=== PATIENT | male | born 1965 | race Caucasian/White ===

== ENCOUNTER 2016-08-29 14:24 | Inpatient (IN) | payer OTHER ==
[2016-08-29 18:27] VITALS: BMI 27.6
--- NOTE | 2016-08-29 18:47 | HP ---
CIWA Score - CIWA Score Nausea/Vomitin-Mild Nausea/No Vomiting (RECEIVED LIBRIUM AT [facility] TREATED WITH SEIZURE) Muscle Tremors: 4-Moderate,w/Arms Extend Anxiety: 3 Agitation: 4-Moderately Restless Paroxysmal Sweats: 1-Minimal Palms Moist Orientation: 1-Uncertain about Date Tacttile Disturbances: 0-None Auditory Disturbances: 0-None Visual Disturbances: 0-None Headache: 2-Mild CIWA-Ar Total Score: 16 Admission ROS S - HPI Chief Complaint: WITHDRAWAL SX Allergies/Adverse Reactions: Allergies Allergy/AdvReac Type Severity Reaction Status Date / Time Fish Containing Products Allergy Severe Hives Verified 08/29/16 18:48 No Known Drug Allergies Allergy Verified 08/29/16 18:48 History of Present Illness: 51 YEARS OLD MALE WITH LONG HISTORY OF ALCOHOL NICOTINE DEPENDENCE, HAS SEIZURE , LAST EPISODE 08/28/16 TREATED AT [facility], HAS ANXIETY IS ADMITTED TO DETOX Exam Limitations: No Limitations - Ebola screening Have you traveled outside of the country in the last 21 days: No Have you had contact with anyone from an Ebola affected area: No Have you been sick,other than usual withdrawal symptoms: No Do you have a fever: No - Review of Systems Constitutional: Chills, Changes in sleep, Weight Stable EENT: reports: No Symptoms Reported Respiratory: reports: No Symptoms reported Cardiac: reports: No Symptoms Reported GI: reports: Nausea, Poor Fluid Intake, Abdominal cramping : reports: No Symptoms Reported Musculoskeletal: reports: No Symptoms Reported Integumentary: reports: No Symptoms Reported Neuro: reports: Seizure (HEAD TRAUMA AT AGO 19,), Tremors Endocrine: reports: No Symptoms Reported Hematology: reports: No Symptoms Reported Psychiatric: reports: Judgement Intact, Anxious Other Systems: Reviewed and Negative Patient History - Patient Medical History Hx Anemia: No Hx Asthma: No Hx Chronic Obstructive Pulmonary Disease (COPD): No Hx Cancer: No Hx Cardiac Disorders: No Hx Congestive Heart Failure: No Hx Hypertension: No Hx Hypercholesterolemia: No Hx Pacemaker: No HX Cerebrovascular Accident: No Hx Seizures: Yes ( HEAD TRAUMAlast episode was in 08/28/16) Hx Dementia: No Hx Diabetes: No Hx Gastrointestinal Disorders: No Hx Liver Disease: No Hx Genitourinary Disorders: No Hx Sexually Transmitted Disorders: No Hx Renal Disease (ESRD): No Hx Thyroid Disease: No Hx Human Immunodeficiency Virus (HIV): No (negative) Hx Hepatitis C: No Hx Depression: Yes Hx Suicide Attempt: No Hx Bipolar Disorder: No Hx Schizophrenia: No - Patient Surgical History Past Surgical History: Yes Hx Neurologic Surgery: Yes (metal plate placed 2009 no recollection how he wound up in hospital ) Hx Cataract Extraction: No Hx Cardiac Surgery: No Hx Lung Surgery: No Hx Breast Surgery: No Hx Breast Biopsy: No Hx Abdominal Surgery: No Hx Appendectomy: No Hx Cholecystectomy: No Hx Genitourinary Surgery: No Hx Orthopedic Surgery: No Anesthesia Reaction: No - PPD History Previous Implant?: Yes Documented Results: Negative w/proof Implanted On Prior [facility] Admission?: Yes Date: 03/17/16 Results: 0 mm PPD to be Administered?: No - Smoking Cessation Smoking history: Current every day smoker Have you smoked in the past 12 months: Yes Aproximately how many cigarettes per day: 10 Cigars Per Day: 0 Hx Chewing Tobacco Use: No Initiated information on smoking cessation: Yes 'Breaking Loose' booklet given: 08/29/16 - Substance & Tx. History Hx Alcohol Use: Yes Hx Substance Use: No Substance Use Type: Alcohol Hx Substance Use Treatment: Yes - Substances Abused Alcohol Route: Oral Frequency: Daily Amount used: 24 OZ X6 BEER Age of first use: 15 Date of Last Use: 08/29/16 Admission Physical Exam BHS - Vital Signs Vital Signs: Vital Signs - 24 hr 08/29/16 18:22 Temperature 99.0 F Pulse Rate 75 Respiratory 18 Rate Blood Pressure 125/76 - Physical General Appearance: Yes: Appropriately Dressed, Mild Distress, Moderate Distress , Tremorous, Irritable, Sweating, Anxious HEENTM: Yes: Hearing grossly Normal, Normal ENT Inspection, Normocephalic, Normal Voice Respiratory: Yes: Chest Non-Tender, Lungs Clear, Normal Breath Sounds, No Respiratory Distress, No Accessory Muscle Use Neck: Yes: Supple, Trachea in good position Breast: Yes: Breasts Symetrical Cardiology: Yes: Regular Rhythm, Regular Rate, S1, S2 Abdominal: Yes: Non Tender, Soft Genitourinary: Yes: Within Normal Limits Back: Yes: Normal Inspection Musculoskeletal: Yes: Gait Steady (CANE), Muscle Pain Extremities: Yes: Non-Tender, Tremors Neurological: Yes: Alert, Normal Response, Depressed Affect Integumentary: Yes: Warm Lymphatic: Yes: Within Normal Limits - Diagnostic (1) Nicotine dependence Current Visit: Yes Status: Acute Qualifiers: Nicotine product type: cigarettes Substance use status: in withdrawal Qualified Code(s): F17.213 - Nicotine dependence, cigarettes, with withdrawal (2) Seizure disorder Current Visit: Yes Status: Acute Comment: DEPAKOTE DILANTIN (3) Alcohol dependence with uncomplicated withdrawal Current Visit: Yes Status: Acute (4) Use of cane as ambulatory aid Current Visit: Yes Status: Acute Comment: SEIZURE 08/28/16 SEIZURE 08/21/16 (5) Anxiety Current Visit: Yes Status: Suspected (6) Hyperpigmentation Current Visit: Yes Status: Chronic Comment: HANDS WORK RELATED Cleared for Admission S - Detox or Rehab [facility] Level of Care: Medically Managed Detox Regimen/Protocol: Valium S Breath Alcohol Content Breath Alcohol Content: 0 Urine Drug Screen - Results Drug Screen Negative: No Urine Drug Screen Results: THC-Marijuana, BAR-Barbiturates, BZO-Benzodiazepines
[2016-08-29] MEDS ORDERED: MAGNESIUM CITRATE 300 ML BOTTLE PO PRN (18:52)
[2016-08-29] MEDS ORDERED: P-EPHED 60MG/TRIPROLIDI 2.5MG TABLET PO PRN (18:52)
[2016-08-29] MEDS ORDERED: LOPERAMIDE HCL 2 MG CAPSULE PO PRN (18:52)
[2016-08-29] MEDS ORDERED: NICOTINE POLACRILEX 2 MG GUM BUC PRN (18:52)
[2016-08-29] MEDS ORDERED: diazePAM 5 MG TABLET PO ONE (18:52)
[2016-08-29] MEDS ORDERED: IBUPROFEN 400 MG TABLET (FP) PO PRN (18:52)
[2016-08-29] MEDS ORDERED: MENTHOL/PHENOL 1 EACH UD MM PRN (18:52)
[2016-08-29] MEDS ORDERED: MAGNESIUM HYDROX 2400MG/30ML ORAL SUSPENSION 30 ML CUP PO PRN (18:52)
[2016-08-29] MEDS ORDERED: hydrOXYzine PAMOATE 50 MG CAPSULE (FP) PO PRN (18:52)
[2016-08-29] MEDS ORDERED: MAG HYDROX/AL HYDROX/SIMETH 30 ML UNIT-DOSE CUP PO PRN (18:52)
[2016-08-29] MEDS ORDERED: guaiFENesin/D-METHORPHAN HB 10 ML UNIT-DOSE CUPS PO PRN (18:52)
[2016-08-29] MEDS ORDERED: ACETAMINOPHEN 325 MG TABLET (FP) PO PRN (18:52)
[2016-08-29 22:33] LABS: URINE APPEARANCE CLEAR; URINE BILIRUBIN NEGATIVE (NEGATIVE); URINE BLOOD NEGATIVE (NEGATIVE); URINE COLOR LTYELLOW; URINE GLUCOSE (UA) NEGATIVE (NEGATIVE); URINE KETONE 1+ (NEGATIVE); URINE LEUK ESTERASE NEGATIVE (NEGATIVE); URINE NITRITE NEGATIVE (NEGATIVE); URINE PROTEIN NEGATIVE (NEGATIVE); URINE UROBILINOGEN NEGATIVE E.U./dl (0.2-1.0)
[2016-08-29] MEDS: PHENYTOIN NA EXTENDED 100 MG CAPSULE (FP) PO SCH (22:56)
[2016-08-29] MEDS: THIAMINE HCL 100 MG TABLET (FP) PO SCH (22:56)
[2016-08-29] MEDS: diazePAM 5 MG TABLET PO SCH (22:57)
[2016-08-29] MEDS: DIVALPROEX SODIUM 500 MG TABLET E.C. PO SCH (22:57)
[2016-08-30] MEDS: diazePAM 5 MG TABLET PO SCH ×3 (05:39→22:57)
[2016-08-30] MEDS: NICOTINE 14 MG/24 HOURS TOPICAL PATCH TD SCH (10:58)
[2016-08-30] MEDS: PRENATAL VITAMINS W/ FOLIC ACID TABLET (FP) PO SCH (10:58)
[2016-08-30] MEDS: DIVALPROEX SODIUM 500 MG TABLET E.C. PO SCH ×2 (10:58→22:57)
--- NOTE | 2016-08-30 11:28 | PN ---
[facility] CIWA - CIWA Score Nausea/Vomitin-No Nausea/No Vomiting Muscle Tremors: 4-Moderate,w/Arms Extend Anxiety: 4-Mod. Anxious/Guarded Agitation: 4-Moderately Restless Paroxysmal Sweats: 1-Minimal Palms Moist Orientation: 0-Oriented Tacttile Disturbances: 3-Moderate Itch/Numb/Burn Auditory Disturbances: 0-None Visual Disturbances: 0-None Headache: 0-None Present CIWA-Ar Total Score: 16 BHS Progress Note (SOAP) Subjective: ANXIETY,TREMORS,SWEATS,INTERMITTENT SLEEP Objective: 08/30/16 11:27 Vital Signs Temperature 97.6 F 08/30/16 10:31 Pulse Rate 76 08/30/16 10:31 Respiratory Rate 20 08/30/16 10:31 Blood Pressure 133/82 08/30/16 10:31 O2 Sat by Pulse Oximetry (%) Laboratory Last Values Urine Color Ltyellow 08/29/16 22:00 Urine Appearance Clear 08/29/16 22:00 Urine pH 6.0 (5.0-8.0) 08/29/16 22:00 Ur Specific [place] 1.015 (1.001-1.035) 08/29/16 22:00 Urine Protein Negative (NEGATIVE) 08/29/16 22:00 Urine Glucose (UA) Negative (NEGATIVE) 08/29/16 22:00 Urine Ketones 1+ (NEGATIVE) H 08/29/16 22:00 Urine Blood Negative (NEGATIVE) 08/29/16 22:00 Urine Nitrite Negative (NEGATIVE) 08/29/16 22:00 Urine Bilirubin Negative (NEGATIVE) 08/29/16 22:00 Urine Urobilinogen Negative E.U./dl (0.2-1.0) 08/29/16 22:00 Ur Leukocyte Esterase Negative (NEGATIVE) 08/29/16 22:00 Assessment: 08/30/16 11:27 MG ROMEO Plan: CONTINUE DETOX
[2016-08-30 11:39] LABS: ALBUMIN 3.1 g/dl (3.4-5.0); ANION GAP 10 (8-16); CALCIUM 8.6 mg/dL (8.5-10.1); CO2 28 mmol/L (21-32); GLUCOSE,RANDOM 87 mg/dL (74-106); SGPT/ALT 68 U/L (12-78)
[2016-08-30 11:43] LABS: ALK PHOS 172 U/L (45-117); BILIRUBIN,TOTAL 0.6 mg/dL (0.2-1.0); COCKROFT - GAULT 161.59; CREATININE 0.6 mg/dL (0.7-1.3); MCH 30.5 pg (25.7-33.7); MCHC 32.7 g/dl (32.0-35.9); MEAN CELL VOLUME 93.3 fl (80-96); MEAN PLT VOLUME 9.6 fl (7.5-11.1); PLATELET COUNT 278 K/MM3 (134-434); RDW 14.9 % (11.9-15.9); SGOT/AST 53 U/L (15-37); TOT PROT 6.9 g/dl (6.4-8.2); WHITE BLOOD COUNT 7.5 K/mm3 (4.0-10.0)
[2016-08-30 11:53] LABS: VALPROIC ACID DEPAKOTE DEPAKAN 72.965 ug/ml (50-100)
--- NOTE | 2016-08-30 12:21 | CONSULT ---
[facility] Psychiatric Consult - Data Date of interview: 08/30/16 Admission source: [facility] Identifying data: Mr Parekh is a 51 years old single male, father of 3 children, unemployed on public assistancr, homeless seeking detox treatment for alcohol Substance Abuse History: - Smoking Cessation. Smoking history: Current every day smoker. Have you smoked in the past 12 months: Yes. Aproximately how many cigarettes per day: 10. Cigars Per Day: 0. Hx Chewing Tobacco Use: No. Initiated information on smoking cessation: Yes. 'Breaking Loose' booklet given : 08/29/16. - Substance & Tx. History. Hx Alcohol Use: Yes. Hx Substance Use : No. Substance Use Type: Alcohol. Hx Substance Use Treatment: Yes. - Substances Abused. Alcohol. Route: Oral. Frequency: Daily. Amount used: 24 OZ X6 BEER. Age of first use: 15. Date of Last Use: 08/29/16 Medical History: Significant for history of Seizure Disorder and S/P Neurosurgery in [address] Smokes 10 cigarettes daily Psychiatric History: Denies history of previous psychiatric treatment Physical/Sexual Abuse/Trauma History: Denies history of physical, sexual abuse as well as DV relationship. Additional Comment: No criminal history Additional Comment: No criminal history Mental Status Exam - Mental Status Exam Alert and Oriented to: Time, Place, Person Cognitive Function: Fair Patient Appearance: Well Groomed Mood: Hopeful, Euthymic Affect: Appropriate Patient Behavior: Cooperative Speech Pattern: Clear Voice Loudness: Normal Thought Process: Intact Thought Disorder: Not Present Hallucinations: Denies Suicidal Ideation: Denies Insight/Judgement: Poor Sleep: Fair Appetite: Good Muscle strength/Tone: Normal Gait/Station: Normal Psychiatric Findings - Problem List ([place] 1, 2,3) (1) Alcohol dependence with uncomplicated withdrawal Current Visit: Yes Status: Acute (2) Nicotine dependence Current Visit: Yes Status: Acute Qualifiers: Nicotine product type: cigarettes Substance use status: in withdrawal Qualified Code(s): F17.213 - Nicotine dependence, cigarettes, with withdrawal (3) Seizure disorder Current Visit: Yes Status: Acute Comment: TANNA RAMIREZ - Initial Treatment Plan Initial Treatment Plan: Continue inpatient detoxifaication
--- NOTE | 2016-08-30 13:58 | EKG ---
Test Reason : Blood Pressure : / mmHG Vent. Rate : 073 BPM Atrial Rate : 073 BPM P-R Int : 140 ms QRS Dur : 084 ms QT Int : 366 ms P-R-T Axes : 044 011 -03 degrees QTc Int : 403 ms NORMAL SINUS RHYTHM NORMAL ECG NO PREVIOUS ECGS AVAILABLE Confirmed by MICH US, DOLORES ([id number]) on 08/30/2016 1:57:40 PM Referred By: Confirmed By:DOLORES EPPS MD
[2016-08-30] MEDS: THIAMINE HCL 100 MG TABLET (FP) PO SCH (22:57)
[2016-08-30] MEDS: PHENYTOIN NA EXTENDED 100 MG CAPSULE (FP) PO SCH (22:57)
[2016-08-31] MEDS: DIVALPROEX SODIUM 500 MG TABLET E.C. PO SCH ×2 (10:41→22:48)
[2016-08-31] MEDS: PRENATAL VITAMINS W/ FOLIC ACID TABLET (FP) PO SCH (10:41)
[2016-08-31] MEDS: diazePAM 5 MG TABLET PO SCH ×2 (10:41→22:47)
[2016-08-31] MEDS: NICOTINE 14 MG/24 HOURS TOPICAL PATCH TD SCH (10:42)
--- NOTE | 2016-08-31 12:20 | PN ---
[facility] CIWA - CIWA Score Nausea/Vomitin-No Nausea/No Vomiting Muscle Tremors: 4-Moderate,w/Arms Extend Anxiety: 4-Mod. Anxious/Guarded Agitation: 4-Moderately Restless Paroxysmal Sweats: 1-Minimal Palms Moist Orientation: 0-Oriented Tacttile Disturbances: 3-Moderate Itch/Numb/Burn Auditory Disturbances: 0-None Visual Disturbances: 0-None Headache: 0-None Present CIWA-Ar Total Score: 16 BHS Progress Note (SOAP) Subjective: ANXIETY,SWEATS, SLIGHT TREMORS. Objective: 08/31/16 12:19 Vital Signs Temperature 98.6 F 08/31/16 10:25 Pulse Rate 86 08/31/16 10:25 Respiratory Rate 18 08/31/16 10:25 Blood Pressure 119/71 08/31/16 10:25 O2 Sat by Pulse Oximetry (%) Laboratory Last Values WBC 7.5 K/mm3 (4.0-10.0) 08/30/16 07:50 RBC 3.90 M/mm3 (4.00-5.60) L 08/30/16 07:50 Hgb 11.9 GM/dL (11.7-16.9) 08/30/16 07:50 Hct 36.4 % (35.4-49) 08/30/16 07:50 MCV 93.3 fl (80-96) 08/30/16 07:50 MCHC 32.7 g/dl (32.0-35.9) 08/30/16 07:50 RDW 14.9 % (11.9-15.9) D 08/30/16 07:50 Plt Count 278 K/MM3 (134-434) D 08/30/16 07:50 MPV 9.6 fl (7.5-11.1) D 08/30/16 07:50 Sodium 139 mmol/L (136-145) 08/30/16 07:50 Potassium 3.9 mmol/L (3.5-5.1) 08/30/16 07:50 Chloride 101 mmol/L (98-107) 08/30/16 07:50 Carbon Dioxide 28 mmol/L (21-32) 08/30/16 07:50 Anion Gap 10 (8-16) 08/30/16 07:50 BUN 12 mg/dL (7-18) D 08/30/16 07:50 Creatinine 0.6 mg/dL (0.7-1.3) L D 08/30/16 07:50 Creat Clearance w eGFR > 60 (>60) 08/30/16 07:50 Random Glucose 87 mg/dL (74-106) D 08/30/16 07:50 Calcium 8.6 mg/dL (8.5-10.1) 08/30/16 07:50 Total Bilirubin 0.6 mg/dL (0.2-1.0) 08/30/16 07:50 AST 53 U/L (15-37) H D 08/30/16 07:50 ALT 68 U/L (12-78) D 08/30/16 07:50 Alkaline Phosphatase 172 U/L (45-117) H 08/30/16 07:50 Total Protein 6.9 g/dl (6.4-8.2) 08/30/16 07:50 Albumin 3.1 g/dl (3.4-5.0) L D 08/30/16 07:50 Urine Color Ltyellow 08/29/16 22:00 Urine Appearance Clear 08/29/16 22:00 Urine pH 6.0 (5.0-8.0) 08/29/16 22:00 Ur Specific [place] 1.015 (1.001-1.035) 08/29/16 22:00 Urine Protein Negative (NEGATIVE) 08/29/16 22:00 Urine Glucose (UA) Negative (NEGATIVE) 08/29/16 22:00 Urine Ketones 1+ (NEGATIVE) H 08/29/16 22:00 Urine Blood Negative (NEGATIVE) 08/29/16 22:00 Urine Nitrite Negative (NEGATIVE) 08/29/16 22:00 Urine Bilirubin Negative (NEGATIVE) 08/29/16 22:00 Urine Urobilinogen Negative E.U./dl (0.2-1.0) 08/29/16 22:00 Ur Leukocyte Esterase Negative (NEGATIVE) 08/29/16 22:00 Phenytoin 9.2 ug/ml (10.0-20.0) L 08/30/16 07:50 Valproic Acid 72.965 ug/ml (50-100) 08/30/16 07:50 RPR Titer Nonreactive (NONREACTIVE) 08/30/16 07:50 Assessment: 08/31/16 12:19 WITHDRAWAL SX Plan: CONTINUE DETOX
[2016-08-31] MEDS: THIAMINE HCL 100 MG TABLET (FP) PO SCH (22:47)
[2016-08-31] MEDS: PHENYTOIN NA EXTENDED 100 MG CAPSULE (FP) PO SCH (22:48)
[2016-08-31] MEDS: diphenhydrAMINE HCL 50 MG CAPSULE PO PRN (22:49)
[2016-09-01] MEDS: diazePAM 5 MG TABLET PO PRN ×2 (05:27→17:44)
[2016-09-01] MEDS: diazePAM 5 MG TABLET PO SCH ×2 (10:33→22:38)
[2016-09-01] MEDS: DIVALPROEX SODIUM 500 MG TABLET E.C. PO SCH ×2 (10:33→22:38)
[2016-09-01] MEDS: PRENATAL VITAMINS W/ FOLIC ACID TABLET (FP) PO SCH (10:33)
[2016-09-01] MEDS: NICOTINE 14 MG/24 HOURS TOPICAL PATCH TD SCH (10:34)
--- NOTE | 2016-09-01 11:01 | PN ---
BHS Progress Note (SOAP) Subjective: ANXIETY SWEATS, TREMORS, IRRITABILITY. Objective: 09/01/16 11:00 Vital Signs Temperature 95.2 F L 09/01/16 09:28 Pulse Rate 77 09/01/16 09:28 Respiratory Rate 18 09/01/16 09:28 Blood Pressure 119/82 09/01/16 09:28 O2 Sat by Pulse Oximetry (%) Laboratory Last Values WBC 7.5 K/mm3 (4.0-10.0) 08/30/16 07:50 RBC 3.90 M/mm3 (4.00-5.60) L 08/30/16 07:50 Hgb 11.9 GM/dL (11.7-16.9) 08/30/16 07:50 Hct 36.4 % (35.4-49) 08/30/16 07:50 MCV 93.3 fl (80-96) 08/30/16 07:50 MCHC 32.7 g/dl (32.0-35.9) 08/30/16 07:50 RDW 14.9 % (11.9-15.9) D 08/30/16 07:50 Plt Count 278 K/MM3 (134-434) D 08/30/16 07:50 MPV 9.6 fl (7.5-11.1) D 08/30/16 07:50 Sodium 139 mmol/L (136-145) 08/30/16 07:50 Potassium 3.9 mmol/L (3.5-5.1) 08/30/16 07:50 Chloride 101 mmol/L (98-107) 08/30/16 07:50 Carbon Dioxide 28 mmol/L (21-32) 08/30/16 07:50 Anion Gap 10 (8-16) 08/30/16 07:50 BUN 12 mg/dL (7-18) D 08/30/16 07:50 Creatinine 0.6 mg/dL (0.7-1.3) L D 08/30/16 07:50 Creat Clearance w eGFR > 60 (>60) 08/30/16 07:50 Random Glucose 87 mg/dL (74-106) D 08/30/16 07:50 Calcium 8.6 mg/dL (8.5-10.1) 08/30/16 07:50 Total Bilirubin 0.6 mg/dL (0.2-1.0) 08/30/16 07:50 AST 53 U/L (15-37) H D 08/30/16 07:50 ALT 68 U/L (12-78) D 08/30/16 07:50 Alkaline Phosphatase 172 U/L (45-117) H 08/30/16 07:50 Total Protein 6.9 g/dl (6.4-8.2) 08/30/16 07:50 Albumin 3.1 g/dl (3.4-5.0) L D 08/30/16 07:50 Urine Color Ltyellow 08/29/16 22:00 Urine Appearance Clear 08/29/16 22:00 Urine pH 6.0 (5.0-8.0) 08/29/16 22:00 Ur Specific [place] 1.015 (1.001-1.035) 08/29/16 22:00 Urine Protein Negative (NEGATIVE) 08/29/16 22:00 Urine Glucose (UA) Negative (NEGATIVE) 08/29/16 22:00 Urine Ketones 1+ (NEGATIVE) H 08/29/16 22:00 Urine Blood Negative (NEGATIVE) 08/29/16 22:00 Urine Nitrite Negative (NEGATIVE) 08/29/16 22:00 Urine Bilirubin Negative (NEGATIVE) 08/29/16 22:00 Urine Urobilinogen Negative E.U./dl (0.2-1.0) 08/29/16 22:00 Ur Leukocyte Esterase Negative (NEGATIVE) 08/29/16 22:00 Phenytoin 9.2 ug/ml (10.0-20.0) L 08/30/16 07:50 Valproic Acid 72.965 ug/ml (50-100) 08/30/16 07:50 RPR Titer Nonreactive (NONREACTIVE) 08/30/16 07:50 Assessment: 09/01/16 11:00 WITHDRAWAL SX Plan: CONTINUE DETOX
[2016-09-01] MEDS: PHENYTOIN NA EXTENDED 100 MG CAPSULE (FP) PO SCH (22:38)
[2016-09-01] MEDS: THIAMINE HCL 100 MG TABLET (FP) PO SCH (22:39)
[2016-09-01] MEDS: diphenhydrAMINE HCL 50 MG CAPSULE PO PRN (22:41)
[2016-09-02] MEDS: PRENATAL VITAMINS W/ FOLIC ACID TABLET (FP) PO SCH (09:24)
[2016-09-02] MEDS: DIVALPROEX SODIUM 500 MG TABLET E.C. PO SCH (09:24)
[2016-09-02] MEDS: NICOTINE 14 MG/24 HOURS TOPICAL PATCH TD SCH (09:25)
[2016-09-02] MEDS ORDERED: diazePAM 5 MG TABLET PO SCH (10:00)
[2016-09-02 10:45] VITALS: BP 107/74; PULSE 90; TEMP 97
--- NOTE | 2016-09-02 11:03 | DS ---
[facility] Detox Discharge Summary Admission Date: 08/29/16 Discharge Date: 09/02/16 - History Present History: Alcohol Dependence Pertinent Past History: Seizure disorder Traumatic Brain injury - Physical Exam Results Vital Signs: Vital Signs Temperature 97.0 F L 09/02/16 10:45 Pulse Rate 90 09/02/16 10:45 Respiratory Rate 20 09/02/16 10:45 Blood Pressure 107/74 09/02/16 10:45 O2 Sat by Pulse Oximetry (%) Pertinent Admission Physical Exam Findings: Withdrawal sx. Laboratory Tests 08/29/16 08/30/16 08/30/16 22:00 07:50 07:50 WBC 7.5 RBC 3.90 L Hgb 11.9 Hct 36.4 MCV 93.3 MCHC 32.7 RDW 14.9 D Plt Count 278 D MPV 9.6 D Sodium 139 Potassium 3.9 Chloride 101 Carbon Dioxide 28 Anion Gap 10 BUN 12 D Creatinine 0.6 L D Creat Clearance w eGFR > 60 Random Glucose 87 D Calcium 8.6 Total Bilirubin 0.6 AST 53 H D ALT 68 D Alkaline Phosphatase 172 H Total Protein 6.9 Albumin 3.1 L D Urine Color Ltyellow Urine Appearance Clear Urine pH 6.0 Ur Specific [place] 1.015 Urine Protein Negative Urine Glucose (UA) Negative Urine Ketones 1+ H Urine Blood Negative Urine Nitrite Negative Urine Bilirubin Negative Urine Urobilinogen Negative Ur Leukocyte Esterase Negative Phenytoin Valproic Acid RPR Titer 08/30/16 08/30/16 07:50 07:50 WBC RBC Hgb Hct MCV MCHC RDW Plt Count MPV Sodium Potassium Chloride Carbon Dioxide Anion Gap BUN Creatinine Creat Clearance w eGFR Random Glucose Calcium Total Bilirubin AST ALT Alkaline Phosphatase Total Protein Albumin Urine Color Urine Appearance Urine pH Ur Specific [place] Urine Protein Urine Glucose (UA) Urine Ketones Urine Blood Urine Nitrite Urine Bilirubin Urine Urobilinogen Ur Leukocyte Esterase Phenytoin 9.2 L Valproic Acid 72.965 RPR Titer Nonreactive labs noted - Treatment Hospital Course: Detox Protocol Followed, Detoxed Safely, Responded well, Discharged Condition Good, Rehab Referral Accepted Patient has Accepted a Rehab Referral to: 12 step meeting - Medication Discharge Medications: Ambulatory Orders Divalproex Sodium [Depakote] 1,000 mg PO BID 03/15/16 Acetaminophen [Tylenol] 32,650 mg PO Q6H PRN 05/11/16 Albuterol Sulfate Inhaler - [Ventolin Hfa Inhaler -] 2 inh PO Q4H PRN 05/11/16 Folic Acid - 1 mg PO DAILY 05/11/16 Naproxen [Naprosyn -] 500 mg PO BID PRN 05/11/16 Thiamine HCl [B-1] 100 mg PO DAILY 05/11/16 - Diagnosis (1) Alcohol dependence with uncomplicated withdrawal Current Visit: Yes Status: Acute (2) Nicotine dependence Current Visit: Yes Status: Acute Qualifiers: Nicotine product type: cigarettes Substance use status: in withdrawal Qualified Code(s): F17.213 - Nicotine dependence, cigarettes, with withdrawal (3) Seizure disorder Current Visit: Yes Status: Acute - AMA Did Patient Leave Against Medical Advice: No
== END 2016-09-02 10:11 | disposition home or self-care (01) | DRG 775 ==
LOC: YASAS 14:24 → Y3N 18:51
PROVIDERS: ADMIT Internal Medicine; ATTEND Internal Medicine
PROC: HZ2ZZZZ Detoxification Services for Substance Abuse Treatment (ICD-10-PCS; principal; 2016-09-02)
DX: F10.230 Alcohol dependence with withdrawal, uncomplicated (principal); F17.210 Nicotine dependence, cigarettes, uncomplicated; G40.909 Epilepsy, unspecified, not intractable, without status epilepticus; Z59.0 Homelessness
CPT/HCPCS: 36415; 80053; 80164; 80185; 81003; 85027; 86593; 93005; 93010

== ENCOUNTER 2016-10-14 08:41 | Inpatient (IN) | payer OTHER ==
[2016-10-14 10:29] VITALS: BMI 27.4
--- NOTE | 2016-10-14 11:49 | HP ---
CIWA Score - CIWA Score Nausea/Vomitin-Int. Nausea w/Dry Heave Muscle Tremors: 3 Anxiety: 4-Mod. Anxious/Guarded Agitation: 4-Moderately Restless Paroxysmal Sweats: 1-Minimal Palms Moist Orientation: 0-Oriented Tacttile Disturbances: 3-Moderate Itch/Numb/Burn Auditory Disturbances: 0-None Visual Disturbances: 0-None Headache: 3-Moderate CIWA-Ar Total Score: 22 Admission ROS S - HPI Chief Complaint: DETOX TX FOR ALCOHOL DEPENDENCE. Allergies/Adverse Reactions: Allergies Allergy/AdvReac Type Severity Reaction Status Date / Time Fish Containing Products Allergy Severe Hives Verified 10/14/16 10:49 No Known Drug Allergies Allergy Verified 10/14/16 10:49 History of Present Illness: 51 Y/O H/M WITH A HX OF ALCOHOL AND MARIJUANA DEPENDENCE SEEKING DETOX TX Exam Limitations: No Limitations - Ebola screening Have you traveled outside of the country in the last 21 days: No Have you had contact with anyone from an Ebola affected area: No Have you been sick,other than usual withdrawal symptoms: No - Review of Systems Constitutional: Chills, Night Sweats, Changes in sleep EENT: reports: Blurred Vision, Tearing, Nose Congestion Respiratory: reports: No Symptoms reported Cardiac: reports: Lightheadedness GI: reports: Nausea, Indigestion : reports: Frequency Musculoskeletal: reports: Joint Pain, Muscle Pain Integumentary: reports: No Symptoms Reported Neuro: reports: Headache, Seizure (LAST EPISODE. THREE WEEKS AGO), Tremors, Unsteady Gait Endocrine: reports: No Symptoms Reported Hematology: reports: No Symptoms Reported Psychiatric: reports: Orientated x3, Anxious Other Systems: Reviewed and Negative Patient History - Patient Medical History Hx Anemia: No Hx Asthma: No Hx Chronic Obstructive Pulmonary Disease (COPD): No Hx Cancer: No Hx Cardiac Disorders: No Hx Congestive Heart Failure: No Hx Hypertension: No Hx Hypercholesterolemia: No Hx Pacemaker: No HX Cerebrovascular Accident: No Hx Seizures: Yes (on meds. Last seizure was 3 weeks ago.) Hx Dementia: No Hx Diabetes: No Hx Gastrointestinal Disorders: No Hx Liver Disease: No Hx Genitourinary Disorders: No Hx Sexually Transmitted Disorders: No Hx Renal Disease (ESRD): No Hx Thyroid Disease: No Hx Human Immunodeficiency Virus (HIV): No (negative) Hx Hepatitis C: No Hx Depression: Yes Hx Suicide Attempt: No (DENIES) Hx Bipolar Disorder: No Hx Schizophrenia: No Other Medical History: HX CHRONIC INSOMNIA - Patient Surgical History Past Surgical History: Yes Hx Neurologic Surgery: Yes (metal plate placed 2008 no recollection how he wound up in hospital ) Hx Cataract Extraction: No Hx Cardiac Surgery: No Hx Lung Surgery: No Hx Breast Surgery: No Hx Breast Biopsy: No Hx Abdominal Surgery: No Hx Appendectomy: No Hx Cholecystectomy: No Hx Genitourinary Surgery: No Hx Orthopedic Surgery: No Anesthesia Reaction: No - PPD History Previous Implant?: Yes Documented Results: Negative w/proof Implanted On Prior [facility] Admission?: Yes Date: 03/17/16 Results: 0 mm PPD to be Administered?: No - Reproductive History Patient is a Female of Child Bearing Age (11 -55 yrs old): No (MALE) - Smoking Cessation Smoking history: Current every day smoker Have you smoked in the past 12 months: Yes Aproximately how many cigarettes per day: 4 Cigars Per Day: 0 Hx Chewing Tobacco Use: No Initiated information on smoking cessation: Yes 'Breaking Loose' booklet given: 10/14/16 - Substance & Tx. History Hx Alcohol Use: Yes (BEER) Hx Substance Use: Yes (MARIJUANA) Substance Use Type: Alcohol, Marijuana - Substances Abused Alcohol Route: Oral Frequency: Daily Amount used: 6 24 oz beers Age of first use: 15 Date of Last Use: 10/14/16 Marijuana/Hashish Route: Smoking Frequency: Daily Amount used: 3-4 blunts Age of first use: 19 Date of Last Use: 10/13/16 Family Disease History - Family Disease History Family History: Unable to Obtain (PT DOES NOT KNOW) Admission Physical Exam S - Vital Signs Vital Signs: Vital Signs - 24 hr 10/14/16 10:25 Temperature 97 F L Pulse Rate 98 H Respiratory 20 Rate Blood Pressure 130/77 - Physical General Appearance: Yes: Moderate Distress, Alcohol on Breath, Irritable, Anxious, Other (SCAR ON SCALP AND LEFT EYEBROW DUE TO SEIZURE FALL INJURY IN 2008) HEENTM: Yes: EOMI, Normocephalic, DEX, Pharynx Normal, Nasal Congestion, Rhinorrhea Respiratory: Yes: Chest Non-Tender, Lungs Clear, Normal Breath Sounds, No Respiratory Distress Neck: Yes: Supple, Trachea in good position Breast: Yes: Breast Exam Deferred Cardiology: Yes: Regular Rhythm, Regular Rate, S1, S2 Abdominal: Yes: Normal Bowel Sounds, Non Tender, Soft Genitourinary: Yes: Other (N/C) Back: Yes: Within Normal Limits Musculoskeletal: Yes: full range of Motion, Gait Steady Extremities: Yes: Normal Range of Motion, Non-Tender, Tremors Neurological: Yes: in processing instructor II-XII NML intact, Fully Oriented, Alert Integumentary: Yes: Dry, Warm Lymphatic: Yes: Within Normal Limits - Diagnostic (1) Alcohol dependence with uncomplicated withdrawal Current Visit: Yes Status: Acute (2) Nicotine dependence Current Visit: Yes Status: Acute Qualifiers: Nicotine product type: cigarettes Substance use status: in withdrawal Qualified Code(s): F17.213 - Nicotine dependence, cigarettes, with withdrawal (3) Seizure disorder Current Visit: Yes Status: Chronic Comment: DEPAKOTE DILANTIN (4) Cannabis dependence Current Visit: Yes Status: Chronic Cleared for Admission [facility] - Detox or Rehab [facility] Level of Care: Medically Managed Detox Regimen/Protocol: Librium [facility] Breath Alcohol Content Breath Alcohol Content: 0.073 Urine Drug Screen - Results Drug Screen Negative: No Urine Drug Screen Results: THC-Marijuana, BAR-Barbiturates, BZO-Benzodiazepines
[2016-10-14] MEDS ORDERED: MENTHOL/PHENOL 1 EACH UD MM PRN (11:59)
[2016-10-14] MEDS ORDERED: MAGNESIUM CITRATE 300 ML BOTTLE PO PRN (11:59)
[2016-10-14] MEDS ORDERED: P-EPHED 60MG/TRIPROLIDI 2.5MG TABLET PO PRN (11:59)
[2016-10-14] MEDS ORDERED: NICOTINE POLACRILEX 2 MG GUM BUC PRN (11:59)
[2016-10-14] MEDS ORDERED: chlordiazePOXIDE HCL 25 MG CAPSULE PO PRN (11:59)
[2016-10-14] MEDS ORDERED: MAGNESIUM HYDROX 2400MG/30ML ORAL SUSPENSION 30 ML CUP PO PRN (11:59)
[2016-10-14] MEDS ORDERED: LOPERAMIDE HCL 2 MG CAPSULE PO PRN (11:59)
[2016-10-14] MEDS ORDERED: MAG HYDROX/AL HYDROX/SIMETH 30 ML UNIT-DOSE CUP PO PRN (11:59)
[2016-10-14] MEDS ORDERED: guaiFENesin/D-METHORPHAN HB 10 ML UNIT-DOSE CUPS PO PRN (11:59)
[2016-10-14] MEDS ORDERED: ACETAMINOPHEN 325 MG TABLET (FP) PO PRN (11:59)
[2016-10-14] MEDS ORDERED: IBUPROFEN 400 MG TABLET (FP) PO PRN (11:59)
[2016-10-14] MEDS ORDERED: chlordiazePOXIDE HCL 25 MG CAPSULE PO ONE (12:12)
[2016-10-14] MEDS: NICOTINE 14 MG/24 HOURS TOPICAL PATCH TD SCH (13:51)
[2016-10-14] MEDS: PHENYTOIN NA EXTENDED 100 MG CAPSULE (FP) PO SCH ×2 (13:51→23:07)
--- NOTE | 2016-10-14 16:48 | CONSULT ---
[facility] Psychiatric Consult - Data Date of interview: 10/14/16 Admission source: [facility] Identifying data: First admission to [facility] for this 51 y/o male seeking detox treatment for alcohol and marijuana dependence.Patient is single, a father of three,homeless,unemployed (disabled) and supported on Public Assistance. Substance Abuse History: - Smoking Cessation. Smoking history: Current every day smoker. Have you smoked in the past 12 months: Yes. Aproximately how many cigarettes per day: 4. Cigars Per Day: 0. Hx Chewing Tobacco Use: No. Initiated information on smoking cessation: Yes. 'Breaking Loose' booklet given : 10/14/16. - Substance & Tx. History. Hx Alcohol Use: Yes (BEER). Hx Substance Use: Yes (MARIJUANA). Substance Use Type: Alcohol, Marijuana. - Substances Abused. Alcohol. Route: Oral. Frequency: Daily. Amount used: 6 24 oz beers. Age of first use: 15. Date of Last Use: 10/14/16. Marijuana /Hashish. Route: Smoking. Frequency: Daily. Amount used: 3-4 blunts. Age of first use: 19. Date of Last Use: 10/13/16. Confirmed by patient. Medical History: Seizure disorder since age 20.History of craniotomy in 2008 ( metal plate in situ).Patient is unable to provide details about the circumstances that led to neurosurgery. Psychiatric History: Patient denies. Physical/Sexual Abuse/Trauma History: Patient denies. Additional Comment: Urine Drug Screen Results: THC-Marijuana, BAR-Barbiturates, BZO-Benzodiazepines.Noted. Mental Status Exam - Mental Status Exam Alert and Oriented to: Time, Place, Person Cognitive Function: Good Patient Appearance: Well Groomed Mood: Anxious, Apprehensive Affect: Mood Congruent Patient Behavior: Fatigued, Appropriate, Cooperative Speech Pattern: Clear, Appropriate Voice Loudness: Normal Thought Process: Goal Oriented Thought Disorder: Not Present Hallucinations: Denies Suicidal Ideation: Denies Homicidal Ideation: Denies Insight/Judgement: Poor Sleep: Poorly, Difficulty falling asleep Appetite: Good Muscle strength/Tone: Normal Gait/Station: Other Additional Comments: walks with a cane Psychiatric Findings - Problem List ([place] 1, 2,3) (1) Alcohol dependence with uncomplicated withdrawal Current Visit: Yes Status: Acute (2) Nicotine dependence Current Visit: Yes Status: Acute Qualifiers: Nicotine product type: cigarettes Substance use status: in withdrawal Qualified Code(s): F17.213 - Nicotine dependence, cigarettes, with withdrawal (3) Cannabis dependence Current Visit: Yes Status: Acute (4) Seizure disorder Current Visit: Yes Status: Chronic Comment: TANNA RAMIREZ (5) Use of cane as ambulatory aid Current Visit: Yes Status: Acute Comment: SEIZURE 08/28/16 SEIZURE 08/21/16 - Initial Treatment Plan Initial Treatment Plan: Psychoeducation.Detoxification.Observation.
[2016-10-14] MEDS: chlordiazePOXIDE HCL 25 MG CAPSULE PO SCH ×2 (18:11→23:07)
[2016-10-14 20:17] LABS: URINE APPEARANCE CLEAR; URINE BILIRUBIN NEGATIVE (NEGATIVE); URINE BLOOD NEGATIVE (NEGATIVE); URINE COLOR YELLOW; URINE GLUCOSE (UA) NEGATIVE (NEGATIVE); URINE KETONE 1+ (NEGATIVE); URINE LEUK ESTERASE NEGATIVE (NEGATIVE); URINE NITRITE NEGATIVE (NEGATIVE); URINE PROTEIN NEGATIVE (NEGATIVE); URINE UROBILINOGEN NEGATIVE E.U./dl (0.2-1.0)
[2016-10-14] MEDS: diphenhydrAMINE HCL 50 MG CAPSULE PO PRN (23:07)
[2016-10-14] MEDS: DIVALPROEX SODIUM 500 MG TABLET E.C. PO SCH (23:07)
[2016-10-14] MEDS: THIAMINE HCL 100 MG TABLET (FP) PO SCH (23:07)
[2016-10-15] MEDS: chlordiazePOXIDE HCL 25 MG CAPSULE PO SCH ×4 (06:06→23:15)
[2016-10-15] MEDS: PHENYTOIN NA EXTENDED 100 MG CAPSULE (FP) PO SCH ×3 (06:06→23:15)
[2016-10-15 10:37] LABS: MCH 32.6 pg (25.7-33.7); MEAN CELL VOLUME 95.9 fl (80-96); MEAN PLT VOLUME 12.3 fl (7.5-11.1); RDW 15.1 % (11.9-15.9); WHITE BLOOD COUNT 7.9 K/mm3 (4.0-10.0)
[2016-10-15] MEDS: PRENATAL VITAMINS W/ FOLIC ACID TABLET (FP) PO SCH (11:11)
[2016-10-15] MEDS: DIVALPROEX SODIUM 500 MG TABLET E.C. PO SCH ×2 (11:11→23:15)
[2016-10-15] MEDS: NICOTINE 14 MG/24 HOURS TOPICAL PATCH TD SCH (11:12)
[2016-10-15 11:17] LABS: ALBUMIN 3.9 g/dl (3.4-5.0); ALK PHOS 169 U/L (45-117); ANION GAP 15 (8-16); BILIRUBIN,TOTAL 0.4 mg/dL (0.2-1.0); CALCIUM 9.8 mg/dL (8.5-10.1); CO2 24 mmol/L (21-32); COCKROFT - GAULT 192.77; CREATININE 0.5 mg/dL (0.7-1.3); GLUCOSE,RANDOM 87 mg/dL (74-106); SGOT/AST 34 U/L (15-37); SGPT/ALT 41 U/L (12-78); TOT PROT 7.9 g/dl (6.4-8.2)
[2016-10-15 11:26] LABS: PLATELET COMMENT2 NO CLOTTING DETECTED; PLATELET COMMENT3 FEW LARGE PLTS; PLATELET COUNT 190 K/MM3 (134-434); PLATELET ESTIMATE ADEQUATE (NORMAL)
[2016-10-15 13:28] LABS: VALPROIC ACID DEPAKOTE DEPAKAN 53.962 ug/ml (50-100)
--- NOTE | 2016-10-15 19:12 | PN ---
S CIWA - CIWA Score Nausea/Vomitin-Mild Nausea/No Vomiting Muscle Tremors: 3 Anxiety: 4-Mod. Anxious/Guarded Agitation: 2 Paroxysmal Sweats: 4-Forehead w/Sweat Beads Orientation: 0-Oriented Tacttile Disturbances: 3-Moderate Itch/Numb/Burn Auditory Disturbances: 0-None Visual Disturbances: 0-None Headache: 2-Mild CIWA-Ar Total Score: 19 BHS Progress Note (SOAP) Subjective: Tremors, H/A, Sweating. Objective: PT. A & O X 3, OBSERVED AMBULATING ON UNIT. 10/15/16 19:08 Vital Signs Temperature 98.8 F 10/15/16 18:30 Pulse Rate 109 H 10/15/16 18:30 Respiratory Rate 20 10/15/16 18:30 Blood Pressure 104/66 10/15/16 18:30 O2 Sat by Pulse Oximetry (%) Laboratory Tests 10/14/16 10/15/16 10/15/16 19:35 06:00 06:00 WBC 7.9 RBC 3.77 L Hgb 12.3 Hct 36.1 MCV 95.9 MCHC 34.0 RDW 15.1 Plt Count 190 D MPV 12.3 H D Differential Comment Slide scanned Platelet Estimate Adequate Platelet Comment No clotting detected Sodium 131 L Potassium 3.7 Chloride 92 L Carbon Dioxide 24 Anion Gap 15 BUN 5 L D Creatinine 0.5 L Creat Clearance w eGFR > 60 Random Glucose 87 Calcium 9.8 Total Bilirubin 0.4 D AST 34 D ALT 41 D Alkaline Phosphatase 169 H Total Protein 7.9 Albumin 3.9 D Urine Color Yellow Urine Appearance Clear Urine pH 5.0 Ur Specific [place] 1.025 Urine Protein Negative Urine Glucose (UA) Negative Urine Ketones 1+ H Urine Blood Negative Urine Nitrite Negative Urine Bilirubin Negative Urine Urobilinogen Negative Ur Leukocyte Esterase Negative Phenytoin Valproic Acid RPR Titer 10/15/16 10/15/16 06:00 08:20 WBC RBC Hgb Hct MCV MCHC RDW Plt Count MPV Differential Comment Platelet Estimate Platelet Comment Sodium Potassium Chloride Carbon Dioxide Anion Gap BUN Creatinine Creat Clearance w eGFR Random Glucose Calcium Total Bilirubin AST ALT Alkaline Phosphatase Total Protein Albumin Urine Color Urine Appearance Urine pH Ur Specific [place] Urine Protein Urine Glucose (UA) Urine Ketones Urine Blood Urine Nitrite Urine Bilirubin Urine Urobilinogen Ur Leukocyte Esterase Phenytoin < 2.5 L D Valproic Acid 53.962 RPR Titer Nonreactive LABS NOTED. Assessment: 10/15/16 19:12 WITHDRAWAL SYMPTOMS. Plan: CONTINUE DETOX. ADVISED PT. TO CONSULT UNIT PSYCHIATRIST REGARDING LOW PHENYTOIN LEVEL AND TO FOLLOW-UP WITH [employer] HELPER / PSYCHIATRIST AFTER DISCHARGE FROM DETOX.
[2016-10-15] MEDS: THIAMINE HCL 100 MG TABLET (FP) PO SCH (23:15)
[2016-10-16] MEDS: PHENYTOIN NA EXTENDED 100 MG CAPSULE (FP) PO SCH ×3 (05:41→22:22)
[2016-10-16] MEDS: chlordiazePOXIDE HCL 25 MG CAPSULE PO SCH ×2 (05:41→10:48)
[2016-10-16] MEDS: DIVALPROEX SODIUM 500 MG TABLET E.C. PO SCH ×2 (10:48→22:22)
[2016-10-16] MEDS: PRENATAL VITAMINS W/ FOLIC ACID TABLET (FP) PO SCH (10:48)
[2016-10-16] MEDS: NICOTINE 14 MG/24 HOURS TOPICAL PATCH TD SCH (10:49)
[2016-10-16] MEDS ORDERED: PHENYTOIN NA EXTENDED 100 MG CAPSULE (FP) PO ONE (15:35)
--- NOTE | 2016-10-16 15:39 | PN ---
S CIWA - CIWA Score Nausea/Vomitin-No Nausea/No Vomiting Muscle Tremors: 3 Anxiety: 4-Mod. Anxious/Guarded Agitation: 3 Paroxysmal Sweats: 3 Orientation: 0-Oriented Tacttile Disturbances: 0-None Auditory Disturbances: 0-None Visual Disturbances: 0-None Headache: 0-None Present CIWA-Ar Total Score: 13 BHS Progress Note (SOAP) Subjective: Sweating,interrupted sleep,restless,tremors,anxiety. Objective: 10/16/16 15:38 Vital Signs - 8 hr 10/16/16 10/16/16 11:12 13:41 Temperature 97.9 F 98.2 F Pulse Rate 81 82 Respiratory 18 18 Rate Blood Pressure 109/70 117/73 Laboratory Tests 10/14/16 10/15/16 10/15/16 19:35 06:00 06:00 WBC 7.9 RBC 3.77 L Hgb 12.3 Hct 36.1 MCV 95.9 MCHC 34.0 RDW 15.1 Plt Count 190 D MPV 12.3 H D Differential Comment Slide scanned Platelet Estimate Adequate Platelet Comment No clotting detected Sodium 131 L Potassium 3.7 Chloride 92 L Carbon Dioxide 24 Anion Gap 15 BUN 5 L D Creatinine 0.5 L Creat Clearance w eGFR > 60 Random Glucose 87 Calcium 9.8 Total Bilirubin 0.4 D AST 34 D ALT 41 D Alkaline Phosphatase 169 H Total Protein 7.9 Albumin 3.9 D Urine Color Yellow Urine Appearance Clear Urine pH 5.0 Ur Specific [place] 1.025 Urine Protein Negative Urine Glucose (UA) Negative Urine Ketones 1+ H Urine Blood Negative Urine Nitrite Negative Urine Bilirubin Negative Urine Urobilinogen Negative Ur Leukocyte Esterase Negative Phenytoin Valproic Acid RPR Titer 10/15/16 10/15/16 06:00 08:20 WBC RBC Hgb Hct MCV MCHC RDW Plt Count MPV Differential Comment Platelet Estimate Platelet Comment Sodium Potassium Chloride Carbon Dioxide Anion Gap BUN Creatinine Creat Clearance w eGFR Random Glucose Calcium Total Bilirubin AST ALT Alkaline Phosphatase Total Protein Albumin Urine Color Urine Appearance Urine pH Ur Specific [place] Urine Protein Urine Glucose (UA) Urine Ketones Urine Blood Urine Nitrite Urine Bilirubin Urine Urobilinogen Ur Leukocyte Esterase Phenytoin < 2.5 L D Valproic Acid 53.962 RPR Titer Nonreactive labs noted,dilantin 300mg stat ordered Assessment: 10/16/16 15:39 Withdrawal sx. Plan: Continue detox
[2016-10-16] MEDS: chlordiazePOXIDE 5 MG CAPSULE PO SCH ×2 (17:39→22:22)
[2016-10-16] MEDS: diphenhydrAMINE HCL 50 MG CAPSULE PO PRN (22:22)
[2016-10-16] MEDS: THIAMINE HCL 100 MG TABLET (FP) PO SCH (22:22)
--- NOTE | 2016-10-16 23:03 | EKG ---
Test Reason : Blood Pressure : / mmHG Vent. Rate : 087 BPM Atrial Rate : 087 BPM P-R Int : 120 ms QRS Dur : 086 ms QT Int : 380 ms P-R-T Axes : 050 005 005 degrees QTc Int : 457 ms NORMAL SINUS RHYTHM NONSPECIFIC ST ABNORMALITY ABNORMAL ECG WHEN COMPARED WITH ECG OF 29-AUG-2016 20:02, NO SIGNIFICANT CHANGE WAS FOUND Confirmed by ZEB GLOVER MD ([id number]) on 10/16/2016 11:03:07 PM Referred By: Niko Muñoz Confirmed By:ZEB GLOVER MD
[2016-10-17] MEDS: chlordiazePOXIDE 5 MG CAPSULE PO SCH ×2 (06:32→10:52)
[2016-10-17] MEDS: PHENYTOIN NA EXTENDED 100 MG CAPSULE (FP) PO SCH ×3 (06:44→22:23)
[2016-10-17] MEDS: PRENATAL VITAMINS W/ FOLIC ACID TABLET (FP) PO SCH (10:52)
[2016-10-17] MEDS: DIVALPROEX SODIUM 500 MG TABLET E.C. PO SCH ×2 (10:53→22:22)
[2016-10-17] MEDS: NICOTINE 14 MG/24 HOURS TOPICAL PATCH TD SCH (10:54)
--- NOTE | 2016-10-17 11:31 | EKG ---
Test Reason : Blood Pressure : / mmHG Vent. Rate : 081 BPM Atrial Rate : 081 BPM P-R Int : 118 ms QRS Dur : 090 ms QT Int : 396 ms P-R-T Axes : 054 -02 003 degrees QTc Int : 460 ms NORMAL SINUS RHYTHM WITH SHORT VA NONSPECIFIC T WAVE ABNORMALITY WHEN COMPARED WITH ECG OF 14-OCT-2016 12:58, NO SIGNIFICANT CHANGE WAS FOUND Confirmed by ADALBERTO US, ZEB ([id number]) on 10/17/2016 11:31:04 AM Referred By: Niko Muñoz Confirmed By:ZEB GLOVER MD
--- NOTE | 2016-10-17 13:38 | PN ---
BHS Progress Note (SOAP) Subjective: Tremors, H/A. Objective: PT. A & O X 3,OBSERVED AMBULATING ON UNIT. 10/17/16 13:36 Vital Signs Temperature 98.1 F 10/17/16 10:12 Pulse Rate 84 10/17/16 10:12 Respiratory Rate 18 10/17/16 10:12 Blood Pressure 110/67 10/17/16 10:12 O2 Sat by Pulse Oximetry (%) Laboratory Tests 10/14/16 10/15/16 10/15/16 19:35 06:00 06:00 WBC 7.9 RBC 3.77 L Hgb 12.3 Hct 36.1 MCV 95.9 MCHC 34.0 RDW 15.1 Plt Count 190 D MPV 12.3 H D Differential Comment Slide scanned Platelet Estimate Adequate Platelet Comment No clotting detected Sodium 131 L Potassium 3.7 Chloride 92 L Carbon Dioxide 24 Anion Gap 15 BUN 5 L D Creatinine 0.5 L Creat Clearance w eGFR > 60 Random Glucose 87 Calcium 9.8 Total Bilirubin 0.4 D AST 34 D ALT 41 D Alkaline Phosphatase 169 H Total Protein 7.9 Albumin 3.9 D Urine Color Yellow Urine Appearance Clear Urine pH 5.0 Ur Specific [place] 1.025 Urine Protein Negative Urine Glucose (UA) Negative Urine Ketones 1+ H Urine Blood Negative Urine Nitrite Negative Urine Bilirubin Negative Urine Urobilinogen Negative Ur Leukocyte Esterase Negative Phenytoin Valproic Acid RPR Titer 10/15/16 10/15/16 06:00 08:20 WBC RBC Hgb Hct MCV MCHC RDW Plt Count MPV Differential Comment Platelet Estimate Platelet Comment Sodium Potassium Chloride Carbon Dioxide Anion Gap BUN Creatinine Creat Clearance w eGFR Random Glucose Calcium Total Bilirubin AST ALT Alkaline Phosphatase Total Protein Albumin Urine Color Urine Appearance Urine pH Ur Specific [place] Urine Protein Urine Glucose (UA) Urine Ketones Urine Blood Urine Nitrite Urine Bilirubin Urine Urobilinogen Ur Leukocyte Esterase Phenytoin < 2.5 L D Valproic Acid 53.962 RPR Titer Nonreactive LABS NOTED. Assessment: 10/17/16 13:38 WITHDRAWAL SYMPTOMS. Plan: CONTINUE DETOX. ADVISED PATIENT TO FOLLOW-UP WITH DRINK WAITER AFTER DISCHARGE FROM DETOX FOR ABNORMAL ADMISSION PHENYTOIN (DILANTIN) LEVEL.
[2016-10-17] MEDS: chlordiazePOXIDE HCL 10 MG CAPSULE PO SCH ×2 (17:45→22:23)
[2016-10-17] MEDS ORDERED: chlordiazePOXIDE 5 MG CAPSULE ONE (21:45)
[2016-10-17] MEDS: THIAMINE HCL 100 MG TABLET (FP) PO SCH (22:22)
[2016-10-17] MEDS: diphenhydrAMINE HCL 50 MG CAPSULE PO PRN (22:24)
[2016-10-18] MEDS: PHENYTOIN NA EXTENDED 100 MG CAPSULE (FP) PO SCH (05:31)
[2016-10-18] MEDS: chlordiazePOXIDE HCL 10 MG CAPSULE PO SCH ×2 (05:31→10:28)
--- NOTE | 2016-10-18 09:41 | DS ---
[facility] Detox Discharge Summary Admission Date: 10/14/16 Discharge Date: 10/18/16 - History Present History: Alcohol Dependence, Cannabis Dependence - Physical Exam Results Vital Signs: Vital Signs Temperature 97.9 F 10/18/16 06:00 Pulse Rate 80 10/18/16 06:00 Respiratory Rate 18 10/18/16 06:00 Blood Pressure 106/63 10/18/16 06:00 O2 Sat by Pulse Oximetry (%) - Treatment Hospital Course: Detox Protocol Followed, Detoxed Safely, Responded well, Discharged Condition Good - Medication Discharge Medications: Ambulatory Orders Divalproex Sodium [Depakote] 1,000 mg PO BID 03/15/16 Folic Acid - 1 mg PO DAILY 05/11/16 Phenytoin Na Extended [Dilantin -] 100 mg PO TID 10/14/16 - Diagnosis (1) Alcohol dependence with uncomplicated withdrawal Current Visit: Yes Status: Chronic (2) Cannabis dependence Current Visit: Yes Status: Chronic (3) Nicotine dependence Current Visit: Yes Status: Chronic Qualifiers: Nicotine product type: cigarettes Substance use status: uncomplicated Qualified Code(s): F17.210 - Nicotine dependence, cigarettes, uncomplicated (4) Use of cane as ambulatory aid Current Visit: Yes Status: Chronic (5) Seizure disorder Current Visit: Yes Status: Chronic (6) Hyperpigmentation Current Visit: Yes Status: Chronic (7) Anxiety Current Visit: Yes Status: Chronic - AMA Did Patient Leave Against Medical Advice: No
[2016-10-18 09:42] VITALS: BP 112/67; PULSE 77; TEMP 98.1
[2016-10-18] MEDS: DIVALPROEX SODIUM 500 MG TABLET E.C. PO SCH (10:26)
[2016-10-18] MEDS: PRENATAL VITAMINS W/ FOLIC ACID TABLET (FP) PO SCH (10:26)
[2016-10-18] MEDS: NICOTINE 14 MG/24 HOURS TOPICAL PATCH TD SCH (10:26)
== END 2016-10-18 11:04 | disposition other institution (70) | DRG 775 ==
LOC: YASAS 08:41 → Y6N 11:56
PROVIDERS: ADMIT Internal Medicine; ATTEND Internal Medicine
PROC: HZ2ZZZZ Detoxification Services for Substance Abuse Treatment (ICD-10-PCS; principal; 2016-10-14)
DX: F10.230 Alcohol dependence with withdrawal, uncomplicated (principal); F12.20 Cannabis dependence, uncomplicated; F17.210 Nicotine dependence, cigarettes, uncomplicated; F41.9 Anxiety disorder, unspecified; G40.909 Epilepsy, unspecified, not intractable, without status epilepticus; R26.2 Difficulty in walking, not elsewhere classified; Z99.89 Dependence on other enabling machines and devices; Z98.890 Other specified postprocedural states; L81.9 Disorder of pigmentation, unspecified
CPT/HCPCS: 36415; 80053; 80164; 80185; 81003; 85027; 86593; 93005; 93010

== ENCOUNTER 2016-10-18 11:11 | Inpatient (IN) | payer OTHER ==
[2016-10-18 11:28] VITALS: BMI 27.7
[2016-10-18] MEDS ORDERED: PNEUMOC 13-VAL CONJ-DIP CRM/PF 0.5 ML DISP.SYRIN IM ONE (11:28)
[2016-10-18] MEDS ORDERED: PNEUMOCOCCAL 23 VACCINE 0.5 ML VIAL IM ONE (12:00)
[2016-10-18] MEDS ORDERED: MENTHOL/PHENOL 1 EACH UD MM PRN (13:03)
[2016-10-18] MEDS ORDERED: IBUPROFEN 400 MG TABLET (FP) PO PRN (13:03)
[2016-10-18] MEDS ORDERED: MAGNESIUM HYDROX 2400MG/30ML ORAL SUSPENSION 30 ML CUP PO PRN (13:03)
[2016-10-18] MEDS ORDERED: MAGNESIUM CITRATE 300 ML BOTTLE PO PRN (13:03)
[2016-10-18] MEDS ORDERED: LOPERAMIDE HCL 2 MG CAPSULE PO PRN (13:03)
[2016-10-18] MEDS ORDERED: guaiFENesin/D-METHORPHAN HB 10 ML UNIT-DOSE CUPS PO PRN (13:03)
[2016-10-18] MEDS ORDERED: MAG HYDROX/AL HYDROX/SIMETH 30 ML UNIT-DOSE CUP PO PRN (13:03)
[2016-10-18] MEDS ORDERED: ACETAMINOPHEN 325 MG TABLET (FP) PO PRN (13:03)
[2016-10-18] MEDS ORDERED: P-EPHED 60MG/TRIPROLIDI 2.5MG TABLET PO PRN (13:03)
[2016-10-18] MEDS ORDERED: NICOTINE POLACRILEX 2 MG GUM BUC PRN (13:08)
[2016-10-18] MEDS: PHENYTOIN NA EXTENDED 100 MG CAPSULE (FP) PO SCH ×2 (14:46→21:18)
--- NOTE | 2016-10-18 16:32 | HP ---
[facility] Re[facility] Assess/Revision - Admission History Admitted to Rehab from: [facility] Date of Admission to Rehab: 10/18/16 - Vital signs Vital Signs: Vital Signs Period Temp Pulse Resp BP Sys/[place] Pulse Ox Last 24 Hr 98 F 90 18 120/78 - Findings Detox History & Physical reviewed: Yes Concur with findings: Yes Comments/Additional Findings: transferred from detox to rehab admission as per protocol
[2016-10-18] MEDS: THIAMINE HCL 100 MG TABLET (FP) PO SCH (21:18)
[2016-10-18] MEDS: DIVALPROEX SODIUM 250 MG TABLET E.C. (FP) PO SCH (21:19)
[2016-10-19] MEDS: PHENYTOIN NA EXTENDED 100 MG CAPSULE (FP) PO SCH ×3 (06:37→21:04)
[2016-10-19] MEDS: DIVALPROEX SODIUM 250 MG TABLET E.C. (FP) PO SCH ×2 (10:17→21:04)
[2016-10-19] MEDS: NICOTINE 7 MG/24 HOURS TOPICAL PATCH TD SCH (10:17)
[2016-10-19] MEDS: PRENATAL VITAMINS W/ FOLIC ACID TABLET (FP) PO SCH (10:17)
--- NOTE | 2016-10-19 11:22 | HP ---
Psychiatrist Admission - Data Date of interview: 10/19/16 Admission source: [facility]N Identifying data: This is the first 3W inatient rehabilitation admission for this 51 y/o male who is single,a father of three,homeless,unemployed ( disabled) and supported on Public Assistance. Medical History: Seizure disorder since age 20.History of craniotomy in 2008 ( metal plate in situ).Patient is unable to provide details about the circumstances that led to neurosurgery. Smokes cigaretets 4 a day. Psychiatric History: Patient reports no history of psychiatric treatment, but reports has been feeling depressed all the time, he reports his appetite is poor , sleep is interrupted and feels hopeless. No history of psychiatric hospitalizations, he reports he wants to start medication for his depression. Physical/Sexual Abuse/Trauma History: Denies history of sexual, physical and verbal abuse. Vital Signs: Vital Signs - 24 hr 10/19/16 10/19/16 10/19/16 00:30 03:30 07:20 Temperature 98.1 F Pulse Rate 80 Respiratory 20 18 18 Rate Blood Pressure 107/71 Allergies/Adverse Reactions: Allergies Allergy/AdvReac Type Severity Reaction Status Date / Time Fish Containing Products Allergy Severe Hives Verified 10/18/16 11:17 No Known Drug Allergies Allergy Verified 10/18/16 11:17 Date of last physical exam: 10/14/16 Concur with the findings of this exam: Yes - Substance Abuse/Tx History Hx Alcohol Use: Yes (daily use) Hx Substance Use: Yes Substance Use Type: Alcohol (6 24 oz beers.), Marijuana (daily) Hx Substance Use Treatment: Yes - Admission Criteria Previous failed treatment: Yes Poor recovery environment: Yes Comorbidities: Yes Lacks judgement: Yes Mental Status Exam - Mental Status Exam Alert and Oriented to: Time, Place, Person Cognitive Function: Grossly Intact Patient Appearance: Well Groomed Mood: Depressed, Sad Affect: Appropriate, Mood Congruent, Normal Range Patient Behavior: Appropriate, Cooperative Speech Pattern: Clear, Appropriate Voice Loudness: Normal Thought Process: Intact, Goal Oriented Thought Disorder: Not Present Hallucinations: Auditory (reports he hears voices sometimes calling his name.) Suicidal Ideation: Denies Homicidal Ideation: Denies Insight/Judgement: Fair Sleep: Fair Appetite: Fair Muscle strength/Tone: Normal Gait/Station: Normal Psychiatric Findings - Problem List ([place] 1, 2,3) (1) Cannabis dependence Current Visit: No Status: Chronic (2) Nicotine dependence Current Visit: No Status: Chronic Qualifiers: Nicotine product type: cigarettes Substance use status: uncomplicated Qualified Code(s): F17.210 - Nicotine dependence, cigarettes, uncomplicated (3) Seizure disorder Current Visit: No Status: Chronic Comment: DEPAKOTE DILANTIN (4) Alcohol dependence Current Visit: Yes Status: Acute (5) Mood disorder Current Visit: Yes Status: Acute - Initial Treatment Plan Initial Treatment Plan: discussed indications and properties of Prozac, patient agreed with treatment plan, will start and continue to monitor progess.
[2016-10-19 11:39] LABS: HIV 1 & 2 AB NEGATIVE; HIV 1 AGp24 NEGATIVE
[2016-10-19] MEDS ORDERED: PHENYTOIN NA EXTENDED 100 MG CAPSULE (FP) PO ONE (11:46)
[2016-10-19] MEDS ORDERED: ONDANSETRON *ODT* 4 MG TABLET SL PRN (13:44)
[2016-10-19] MEDS: THIAMINE HCL 100 MG TABLET (FP) PO SCH (21:04)
[2016-10-20] MEDS: PHENYTOIN NA EXTENDED 100 MG CAPSULE (FP) PO SCH ×3 (06:12→21:02)
[2016-10-20] MEDS: PRENATAL VITAMINS W/ FOLIC ACID TABLET (FP) PO SCH (09:57)
[2016-10-20] MEDS: DIVALPROEX SODIUM 250 MG TABLET E.C. (FP) PO SCH ×2 (09:58→21:02)
[2016-10-20] MEDS: NICOTINE 7 MG/24 HOURS TOPICAL PATCH TD SCH (09:59)
[2016-10-20] MEDS: FLUoxetine HCL 10 MG CAPSULE (FP) PO SCH (10:00)
[2016-10-20] MEDS: THIAMINE HCL 100 MG TABLET (FP) PO SCH (21:02)
[2016-10-20] MEDS: diphenhydrAMINE HCL 50 MG CAPSULE PO PRN (23:30)
[2016-10-21] MEDS: PHENYTOIN NA EXTENDED 100 MG CAPSULE (FP) PO SCH ×3 (06:16→21:18)
[2016-10-21] MEDS: PRENATAL VITAMINS W/ FOLIC ACID TABLET (FP) PO SCH (09:42)
[2016-10-21] MEDS: FLUoxetine HCL 10 MG CAPSULE (FP) PO SCH (09:42)
[2016-10-21] MEDS: NICOTINE 7 MG/24 HOURS TOPICAL PATCH TD SCH (09:43)
[2016-10-21] MEDS ORDERED: DIVALPROEX SODIUM 500 MG TABLET E.C. PO SCH (10:05)
[2016-10-21] MEDS: DIVALPROEX SODIUM 500 MG TABLET E.C. PO SCH ×2 (10:19→21:18)
[2016-10-21] MEDS: DIVALPROEX SODIUM 250 MG TABLET E.C. (FP) PO SCH (10:31)
--- NOTE | 2016-10-21 12:59 | PN ---
[facility] Progress Note Note: dilantin level is 6.1 on 10/20/16 dilantin 300 mgs po now then 100 mgs po tid, repeat dilantin on 10/22/16
[2016-10-21] MEDS ORDERED: PHENYTOIN NA EXTENDED 100 MG CAPSULE (FP) PO ONE (13:45)
[2016-10-21] MEDS: THIAMINE HCL 100 MG TABLET (FP) PO SCH (21:19)
[2016-10-21] MEDS: diphenhydrAMINE HCL 50 MG CAPSULE PO PRN (21:19)
[2016-10-22] MEDS: PHENYTOIN NA EXTENDED 100 MG CAPSULE (FP) PO SCH ×3 (06:14→21:01)
[2016-10-22] MEDS: PRENATAL VITAMINS W/ FOLIC ACID TABLET (FP) PO SCH (10:14)
[2016-10-22] MEDS: DIVALPROEX SODIUM 500 MG TABLET E.C. PO SCH ×2 (10:14→21:01)
[2016-10-22] MEDS: NICOTINE 7 MG/24 HOURS TOPICAL PATCH TD SCH (10:14)
[2016-10-22] MEDS: FLUoxetine HCL 10 MG CAPSULE (FP) PO SCH (10:14)
[2016-10-22] MEDS ORDERED: PHENYTOIN NA EXTENDED 100 MG CAPSULE (FP) PO ONE (13:30)
--- NOTE | 2016-10-22 13:33 | PN ---
S Progress Note Note: dilantin level below therapeutic level Laboratory Results - last 24 hr 10/22/16 07:00 Phenytoin 5.8 L D Laboratory Tests 10/19/16 10/19/16 10/20/16 07:00 07:00 07:00 Phenytoin 3.2 L D 6.1 L D HIV 1&2 Antibody Screen Negative HIV P24 Antigen Negative 10/22/16 07:00 Phenytoin 5.8 L D HIV 1&2 Antibody Screen HIV P24 Antigen Dilantin 500mg po stat
[2016-10-22] MEDS: THIAMINE HCL 100 MG TABLET (FP) PO SCH (21:02)
[2016-10-22] MEDS: diphenhydrAMINE HCL 50 MG CAPSULE PO PRN (21:02)
[2016-10-23] MEDS: PHENYTOIN NA EXTENDED 100 MG CAPSULE (FP) PO SCH ×3 (06:24→21:05)
[2016-10-23] MEDS: DIVALPROEX SODIUM 500 MG TABLET E.C. PO SCH ×2 (09:54→21:04)
[2016-10-23] MEDS: FLUoxetine HCL 10 MG CAPSULE (FP) PO SCH (09:54)
[2016-10-23] MEDS: NICOTINE 7 MG/24 HOURS TOPICAL PATCH TD SCH (09:54)
[2016-10-23] MEDS: PRENATAL VITAMINS W/ FOLIC ACID TABLET (FP) PO SCH (09:54)
[2016-10-23] MEDS: THIAMINE HCL 100 MG TABLET (FP) PO SCH (21:04)
[2016-10-23] MEDS: diphenhydrAMINE HCL 50 MG CAPSULE PO PRN (21:04)
[2016-10-24] MEDS: PHENYTOIN NA EXTENDED 100 MG CAPSULE (FP) PO SCH ×3 (06:44→21:19)
[2016-10-24] MEDS: FLUoxetine HCL 10 MG CAPSULE (FP) PO SCH (10:16)
[2016-10-24] MEDS: DIVALPROEX SODIUM 500 MG TABLET E.C. PO SCH ×2 (10:16→21:19)
[2016-10-24] MEDS: NICOTINE 7 MG/24 HOURS TOPICAL PATCH TD SCH (10:16)
[2016-10-24] MEDS: PRENATAL VITAMINS W/ FOLIC ACID TABLET (FP) PO SCH (10:16)
[2016-10-24] MEDS: THIAMINE HCL 100 MG TABLET (FP) PO SCH (21:19)
[2016-10-24] MEDS: diphenhydrAMINE HCL 50 MG CAPSULE PO PRN (21:19)
[2016-10-25] MEDS: PHENYTOIN NA EXTENDED 100 MG CAPSULE (FP) PO SCH ×3 (05:54→21:01)
[2016-10-25] MEDS: PRENATAL VITAMINS W/ FOLIC ACID TABLET (FP) PO SCH (10:14)
[2016-10-25] MEDS: FLUoxetine HCL 10 MG CAPSULE (FP) PO SCH (10:14)
[2016-10-25] MEDS: DIVALPROEX SODIUM 500 MG TABLET E.C. PO SCH ×2 (10:15→21:01)
[2016-10-25] MEDS: NICOTINE 7 MG/24 HOURS TOPICAL PATCH TD SCH (10:15)
[2016-10-25] MEDS: THIAMINE HCL 100 MG TABLET (FP) PO SCH (21:01)
[2016-10-25] MEDS: diphenhydrAMINE HCL 50 MG CAPSULE PO PRN (21:01)
[2016-10-26] MEDS: PHENYTOIN NA EXTENDED 100 MG CAPSULE (FP) PO SCH ×3 (06:21→21:00)
[2016-10-26] MEDS: DIVALPROEX SODIUM 500 MG TABLET E.C. PO SCH ×2 (10:23→21:00)
[2016-10-26] MEDS: PRENATAL VITAMINS W/ FOLIC ACID TABLET (FP) PO SCH (10:23)
[2016-10-26] MEDS: NICOTINE 7 MG/24 HOURS TOPICAL PATCH TD SCH (10:24)
[2016-10-26] MEDS: FLUoxetine HCL 10 MG CAPSULE (FP) PO SCH (10:24)
[2016-10-26] MEDS: THIAMINE HCL 100 MG TABLET (FP) PO SCH (21:00)
[2016-10-26] MEDS: diphenhydrAMINE HCL 50 MG CAPSULE PO PRN (21:00)
[2016-10-27] MEDS: PHENYTOIN NA EXTENDED 100 MG CAPSULE (FP) PO SCH ×3 (05:48→21:11)
[2016-10-27] MEDS: PRENATAL VITAMINS W/ FOLIC ACID TABLET (FP) PO SCH (10:23)
[2016-10-27] MEDS: FLUoxetine HCL 10 MG CAPSULE (FP) PO SCH (10:24)
[2016-10-27] MEDS: NICOTINE 7 MG/24 HOURS TOPICAL PATCH TD SCH (10:24)
[2016-10-27] MEDS: DIVALPROEX SODIUM 500 MG TABLET E.C. PO SCH ×2 (10:24→21:11)
[2016-10-27] MEDS: diphenhydrAMINE HCL 50 MG CAPSULE PO PRN (21:11)
[2016-10-27] MEDS: THIAMINE HCL 100 MG TABLET (FP) PO SCH (21:11)
[2016-10-28] MEDS: PHENYTOIN NA EXTENDED 100 MG CAPSULE (FP) PO SCH ×3 (05:59→21:18)
[2016-10-28] MEDS: PRENATAL VITAMINS W/ FOLIC ACID TABLET (FP) PO SCH (10:08)
[2016-10-28] MEDS: DIVALPROEX SODIUM 500 MG TABLET E.C. PO SCH ×2 (10:08→21:18)
[2016-10-28] MEDS: FLUoxetine HCL 10 MG CAPSULE (FP) PO SCH (10:08)
[2016-10-28] MEDS: NICOTINE 7 MG/24 HOURS TOPICAL PATCH TD SCH (10:08)
[2016-10-28] MEDS: THIAMINE HCL 100 MG TABLET (FP) PO SCH (21:18)
[2016-10-28] MEDS: diphenhydrAMINE HCL 50 MG CAPSULE PO PRN (21:18)
[2016-10-29] MEDS: PHENYTOIN NA EXTENDED 100 MG CAPSULE (FP) PO SCH ×3 (06:16→21:02)
[2016-10-29] MEDS: FLUoxetine HCL 10 MG CAPSULE (FP) PO SCH (10:25)
[2016-10-29] MEDS: NICOTINE 7 MG/24 HOURS TOPICAL PATCH TD SCH (10:26)
[2016-10-29] MEDS: DIVALPROEX SODIUM 500 MG TABLET E.C. PO SCH ×2 (10:26→21:02)
[2016-10-29] MEDS: PRENATAL VITAMINS W/ FOLIC ACID TABLET (FP) PO SCH (10:27)
[2016-10-29] MEDS: diphenhydrAMINE HCL 50 MG CAPSULE PO PRN (21:02)
[2016-10-29] MEDS: THIAMINE HCL 100 MG TABLET (FP) PO SCH (21:02)
[2016-10-30] MEDS: PHENYTOIN NA EXTENDED 100 MG CAPSULE (FP) PO SCH ×3 (06:22→20:59)
[2016-10-30] MEDS: NICOTINE 7 MG/24 HOURS TOPICAL PATCH TD SCH (10:12)
[2016-10-30] MEDS: FLUoxetine HCL 10 MG CAPSULE (FP) PO SCH (10:12)
[2016-10-30] MEDS: PRENATAL VITAMINS W/ FOLIC ACID TABLET (FP) PO SCH (10:12)
[2016-10-30] MEDS: DIVALPROEX SODIUM 500 MG TABLET E.C. PO SCH ×2 (10:12→20:59)
[2016-10-30] MEDS: diphenhydrAMINE HCL 50 MG CAPSULE PO PRN (20:59)
[2016-10-30] MEDS: THIAMINE HCL 100 MG TABLET (FP) PO SCH (20:59)
[2016-10-31] MEDS: PHENYTOIN NA EXTENDED 100 MG CAPSULE (FP) PO SCH ×3 (06:20→21:09)
[2016-10-31] MEDS: FLUoxetine HCL 10 MG CAPSULE (FP) PO SCH (10:31)
[2016-10-31] MEDS: DIVALPROEX SODIUM 500 MG TABLET E.C. PO SCH ×2 (10:32→21:09)
[2016-10-31] MEDS: NICOTINE 7 MG/24 HOURS TOPICAL PATCH TD SCH (10:32)
[2016-10-31] MEDS: PRENATAL VITAMINS W/ FOLIC ACID TABLET (FP) PO SCH (10:32)
[2016-10-31] MEDS: THIAMINE HCL 100 MG TABLET (FP) PO SCH (21:09)
[2016-10-31] MEDS: diphenhydrAMINE HCL 50 MG CAPSULE PO PRN (21:09)
[2016-11-01] MEDS: PHENYTOIN NA EXTENDED 100 MG CAPSULE (FP) PO SCH ×3 (06:19→21:12)
[2016-11-01 06:38] VITALS: PULSE 85
[2016-11-01] MEDS: FLUoxetine HCL 10 MG CAPSULE (FP) PO SCH (10:07)
[2016-11-01] MEDS: NICOTINE 7 MG/24 HOURS TOPICAL PATCH TD SCH (10:07)
[2016-11-01] MEDS: PRENATAL VITAMINS W/ FOLIC ACID TABLET (FP) PO SCH (10:07)
[2016-11-01] MEDS: DIVALPROEX SODIUM 500 MG TABLET E.C. PO SCH ×2 (10:07→21:12)
[2016-11-01] MEDS: diphenhydrAMINE HCL 50 MG CAPSULE PO PRN (21:12)
[2016-11-01] MEDS: THIAMINE HCL 100 MG TABLET (FP) PO SCH (21:12)
[2016-11-02] MEDS: PHENYTOIN NA EXTENDED 100 MG CAPSULE (FP) PO SCH ×3 (06:07→21:04)
[2016-11-02 06:56] VITALS: TEMP 98.8
--- NOTE | 2016-11-02 09:06 | PN ---
Psychiatric Progress Note Vital Signs: Vital Signs Period Temp Pulse Resp BP Sys/[place]erson Pulse Ox Last 24 Hr 98.8 F 85 18-18 111/66 Date of Session: 11/02/16 Chief Complaint:: Discharge Note HPI: Patient addressing Alcohol and Cannabis Dependence comorbid with Nicotine Dependence and Mood Disorder ROS: Seizure Disorder Current Medications: Active Medications Generic Name Dose Route Start Last Admin Trade Name Freq PRN Reason Stop Dose Admin Acetaminophen 650 mg 10/18/16 13:03 10/22/16 10:15 Tylenol - PO 650 mg Q4H PRN Administration FEVER OR PAIN Al Hydroxide/Mg Hydroxide 30 ml 10/18/16 13:03 10/19/16 13:21 Mylanta Oral Suspension - PO 30 ml Q6H PRN Administration DYSPEPSIA Diphenhydramine HCl 50 mg 10/18/16 13:03 11/01/16 21:12 Benadryl - PO 50 mg HSMR1 PRN Administration FOR ITCHING Divalproex Sodium 1,000 mg 10/21/16 10:00 11/01/16 21:12 Depakote - PO 1,000 mg BID TEO Administration Eucalyptus/Menthol/Phenol/Sorbitol 1 each 10/18/16 13:03 Cepastat Lozenge - MM Q4H PRN SORE THROAT Fluoxetine HCl 10 mg 10/20/16 10:00 11/01/16 10:07 Prozac - PO 10 mg DAILY TEO Administration Guaifenesin 10 ml 10/18/16 13:03 Robitussin Dm - PO Q6H PRN COUGH Ibuprofen 400 mg 10/18/16 13:03 10/22/16 07:06 Motrin - PO 400 mg Q6H PRN Administration PAIN Loperamide HCl 4 mg 10/18/16 13:03 Imodium - PO Q6H PRN DIARRHEA Magnesium Hydroxide 30 ml 10/18/16 13:03 Milk Of Magnesia - PO DAILY PRN CONSTIPATION Nicotine 7 mg 10/19/16 10:00 11/01/16 10:07 Nicoderm Patch - TD 7 mg DAILY TEO Administration Nicotine Polacrilex 2 mg 10/18/16 13:08 Nicorette Gum - BUC Q2H PRN NICOTINE REPLACEMENT RX Ondansetron HCl 8 mg 10/19/16 13:44 Zofran Odt - SL Q8H PRN NAUSEA AND/OR VOMITING Phenytoin Sodium 100 mg 10/18/16 14:00 11/02/16 06:07 Dilantin - PO 100 mg TID TEO Administration Multivit/Folic Acid/Iron 1 tab 10/19/16 10:00 11/01/16 10:07 Vitamins (Sjr) - PO 1 tab DAILY TEO Administration Pseudoephedrine/Triprolidine 1 combo 10/18/16 13:03 Actifed - PO TID PRN NASAL CONGESTION Thiamine HCl 100 mg 10/18/16 22:00 11/01/16 21:12 Vitamin B1 - PO 100 mg HS TEO Administration Current Side Effect: No Lab tests ordered: Yes Lab tests reviewed: Yes Provider note:: Patient will complete this program on 11/03/16. He has met his treatment goals and will continue to address his issues in outpatient treatment at [facility] at [address] [place] [address]. Told abstract writer that from his participation in this program, he has learned that in order to maintain sobriety, attending outpatient and making meetings should the cornerstone of his life. He responded well to Prozac 10 mg po daily. Script for 30 days supply of that medication will be electronically transmitted to [facility] at [address] [place] [address]. He is stable for dischare on 11/03/16 Total face to face time:: 35 Mental Status Exam - Mental Status Exam Alert and Oriented to: Time, Place, Person Cognitive Function: Fair Mood: Hopeful, Euthymic Affect: Appropriate Patient Behavior: Cooperative Speech Pattern: Clear Voice Loudness: Normal Thought Process: Intact, Goal Oriented Thought Disorder: Not Present Hallucinations: Denies Suicidal Ideation: Denies Homicidal Ideation: Denies Insight/Judgement: Fair Sleep: Fair Appetite: Good Muscle strength/Tone: Normal Gait/Station: Ataxic (use a cane as ambulatory aid) Psychiatric Treatment Plan - Problem List (1) Alcohol dependence Current Visit: Yes (2) Cannabis dependence Current Visit: No (3) Nicotine dependence Current Visit: No Qualifiers: Nicotine product type: cigarettes Substance use status: uncomplicated Qualified Code(s): F17.210 - Nicotine dependence, cigarettes, uncomplicated (4) Mood disorder Current Visit: Yes (5) Hyperpigmentation Current Visit: No Comment: HANDS WORK RELATED (6) Seizure disorder Current Visit: No Comment: DEPAKOTE DILANTIN Initial treatment plan: Patient is disvharged today and referred to [facility]
[2016-11-02] MEDS: FLUoxetine HCL 10 MG CAPSULE (FP) PO SCH (10:22)
[2016-11-02] MEDS: PRENATAL VITAMINS W/ FOLIC ACID TABLET (FP) PO SCH (10:22)
[2016-11-02] MEDS: DIVALPROEX SODIUM 500 MG TABLET E.C. PO SCH ×2 (10:22→21:04)
[2016-11-02] MEDS: NICOTINE 7 MG/24 HOURS TOPICAL PATCH TD SCH (10:23)
[2016-11-02] MEDS: THIAMINE HCL 100 MG TABLET (FP) PO SCH (21:03)
[2016-11-02] MEDS: diphenhydrAMINE HCL 50 MG CAPSULE PO PRN (21:04)
[2016-11-03] MEDS: PHENYTOIN NA EXTENDED 100 MG CAPSULE (FP) PO SCH (06:12)
[2016-11-03 07:01] VITALS: BP 122/77
[2016-11-03] MEDS: FLUoxetine HCL 10 MG CAPSULE (FP) PO SCH (09:30)
[2016-11-03] MEDS: DIVALPROEX SODIUM 500 MG TABLET E.C. PO SCH (09:30)
[2016-11-03] MEDS: PRENATAL VITAMINS W/ FOLIC ACID TABLET (FP) PO SCH (09:30)
[2016-11-03] MEDS: NICOTINE 7 MG/24 HOURS TOPICAL PATCH TD SCH (09:31)
== END 2016-11-03 09:37 | disposition home or self-care (01) | DRG 772 ==
LOC: YASAS 11:11 → Y3W 11:12
PROVIDERS: ADMIT Psychiatry & Neurology Psychiatry; ATTEND Psychiatry & Neurology Psychiatry
PROC: HZ42ZZZ Group Counseling for Substance Abuse Treatment, Cognitive-Behavioral (ICD-10-PCS; principal; 2016-10-18)
DX: F10.20 Alcohol dependence, uncomplicated (principal); F12.20 Cannabis dependence, uncomplicated; F17.210 Nicotine dependence, cigarettes, uncomplicated; F39 Unspecified mood [affective] disorder; G40.909 Epilepsy, unspecified, not intractable, without status epilepticus; L81.9 Disorder of pigmentation, unspecified
CPT/HCPCS: 36415; 80185; 87389; 90732; G0009

== ENCOUNTER 2016-12-15 08:55 | Inpatient (IN) | payer OTHER ==
[2016-12-15 08:58] VITALS: BMI 26.1
--- NOTE | 2016-12-15 14:12 | HP ---
CIWA Score - CIWA Score Nausea/Vomitin-No Nausea/No Vomiting Muscle Tremors: 4-Moderate,w/Arms Extend Anxiety: 3 Agitation: 2 Paroxysmal Sweats: 3 Orientation: 0-Oriented Tacttile Disturbances: 2-Mild Itch/Numbness/Burn Auditory Disturbances: 0-None Visual Disturbances: 3-Moderate Sensitivity Headache: 0-None Present CIWA-Ar Total Score: 17 Admission ROS S - HPI Chief Complaint: "I ma here for detox for alcohol." Pt. is here to Detox from Alcohol. Allergies/Adverse Reactions: Allergies Allergy/AdvReac Type Severity Reaction Status Date / Time Fish Containing Products Allergy Severe Hives Verified 12/15/16 11:43 No Known Drug Allergies Allergy Verified 12/15/16 11:43 History of Present Illness: Pt. is a 51 YO male here to Detox from Alcohol. Pt. has had several previous Detox admissions at [facility] in the past. Longest period of sobriety: approx. 7 years (1999 - 2006). Exam Limitations: No Limitations - Ebola screening Have you traveled outside of the country in the last 21 days: No Have you had contact with anyone from an Ebola affected area: No Have you been sick,other than usual withdrawal symptoms: No Do you have a fever: No - Review of Systems Constitutional: Chills, Diaphoresis, Fever, Loss of Appetite, Malaise, Unintentional Wgt. Loss (Lost approx. 10 lbs. over last 1 month.) EENT: reports: Blurred Vision, Tearing Respiratory: reports: Productive cough (Occasional.) Cardiac: reports: Syncope (Only during a Seizure. Last: approx. 2 weeks ago.) GI: reports: Diarrhea : reports: No Symptoms Reported Musculoskeletal: reports: Back Pain (Lower.) Integumentary: reports: Sweating Neuro: reports: Numbness (During seizures.), Seizure (Last episode: approx. 2 weeks ago.), Tingling (During seizures.), Tremors Endocrine: reports: No Symptoms Reported Hematology: reports: No Symptoms Reported Psychiatric: reports: Judgement Intact, Mood/Affect Appropiate, Orientated x3 Other Systems: Reviewed and Negative Patient History - Patient Medical History Hx Anemia: No Hx Asthma: No Hx Chronic Obstructive Pulmonary Disease (COPD): No Hx Cancer: No Hx Cardiac Disorders: No Hx Congestive Heart Failure: No Hx Hypertension: No Hx Hypercholesterolemia: No Hx Pacemaker: No HX Cerebrovascular Accident: No Hx Seizures: Yes (seizure disorder Last 2 weeks ago) Hx Dementia: No Hx Diabetes: No Hx Gastrointestinal Disorders: No Hx Liver Disease: No Hx Genitourinary Disorders: No Hx Sexually Transmitted Disorders: No Hx Renal Disease (ESRD): No Hx Thyroid Disease: No Hx Human Immunodeficiency Virus (HIV): No (Last tested: 09/2016: NEGATIVE.) Hx Hepatitis C: No (Never Tested.) Hx Depression: No Hx Suicide Attempt: No (PATIENT DENIES CURRENT SI / HI.) Hx Bipolar Disorder: No Hx Schizophrenia: No Other Medical History: DENIES. - Patient Surgical History Past Surgical History: Yes Hx Neurologic Surgery: Yes (metal plate placed 2008 (head);no recollection how he wound up in hospital ) Hx Cataract Extraction: No Hx Cardiac Surgery: No Hx Lung Surgery: No Hx Breast Surgery: No Hx Breast Biopsy: No Hx Abdominal Surgery: No Hx Appendectomy: No Hx Cholecystectomy: No Hx Genitourinary Surgery: No Hx Section: No Hx Orthopedic Surgery: No Anesthesia Reaction: No - PPD History Previous Implant?: Yes Documented Results: Negative w/proof Implanted On Prior [facility] Admission?: Yes Date: 03/17/16 Results: 0 mm PPD to be Administered?: No - Reproductive History Patient is a Female of Child Bearing Age (11 -55 yrs old): No (PATIENT IS MALE.) - Smoking Cessation Smoking history: Current every day smoker Have you smoked in the past 12 months: Yes Aproximately how many cigarettes per day: 6 Cigars Per Day: 0 Hx Chewing Tobacco Use: No Initiated information on smoking cessation: Yes 'Breaking Loose' booklet given: 12/15/16 (GIVEN ON UNIT.) - Substance & Tx. History Hx Alcohol Use: Yes Hx Substance Use: Yes Substance Use Type: Alcohol Hx Substance Use Treatment: Yes (Previous detox admissions at [facility] in past.) - Substances Abused Alcohol Route: Oral Frequency: Daily Amount used: 6-7 24 oz beers Age of first use: 19 Date of Last Use: 12/14/16 Marijuana/Hashish Route: Smoking Frequency: 1-3 times last 30 days Amount used: 1 bag Age of first use: 19 Date of Last Use: 12/11/16 Family Disease History - Family Disease History Family History: Denies Admission Physical Exam BHS - Vital Signs Vital Signs: Vital Signs - 24 hr 12/15/16 08:56 Temperature 97.8 F Pulse Rate 71 Respiratory 18 Rate Blood Pressure 137/79 - Physical General Appearance: Yes: No Apparent Distress, Nourished, Appropriately Dressed , Tremorous, Anxious HEENTM: Yes: Hearing grossly Normal, Normocephalic, Normal Voice, DEX, Pharynx Normal, Other (Surgical Scar on Right side of Head ([place] Area).) Respiratory: Yes: Chest Non-Tender, Lungs Clear, No Respiratory Distress, No Accessory Muscle Use Neck: Yes: No masses,lesions,Nodules, Supple, Trachea in good position Breast: Yes: Breast Exam Deferred Cardiology: Yes: Regular Rhythm, Regular Rate, S1, S2 Abdominal: Yes: Normal Bowel Sounds, Non Tender, Flat, Soft Genitourinary: Yes: Within Normal Limits Back: Yes: Decreased Range of Motion Musculoskeletal: Yes: Gait Steady, Back pain Extremities: Yes: Normal Range of Motion, Non-Tender, Tremors Neurological: Yes: Fully Oriented, Alert, Normal Mood/Affect, Normal Response Integumentary: Yes: Normal Color, Dry, Warm Lymphatic: Yes: Within Normal Limits - Diagnostic (1) Alcohol dependence with uncomplicated withdrawal Current Visit: Yes Status: Acute (2) Nicotine dependence Current Visit: Yes Status: Chronic Qualifiers: Nicotine product type: cigarettes Substance use status: uncomplicated Qualified Code(s): F17.210 - Nicotine dependence, cigarettes, uncomplicated (3) Seizure disorder Current Visit: Yes Status: Chronic Comment: TANNA RAMIREZ (4) History of traumatic injury of head Current Visit: Yes Status: Chronic Cleared for Admission [facility] - Detox or Rehab [facility] Level of Care: Medically Managed Detox Regimen/Protocol: Librium [facility] Breath Alcohol Content Breath Alcohol Content: 0 Urine Drug Screen - Results Drug Screen Negative: No Urine Drug Screen Results: THC-Marijuana, BAR-Barbiturates
[2016-12-15] MEDS ORDERED: MENTHOL/PHENOL 1 EACH UD MM PRN (14:34)
[2016-12-15] MEDS ORDERED: NICOTINE POLACRILEX 2 MG GUM BUC PRN (14:34)
[2016-12-15] MEDS ORDERED: IBUPROFEN 400 MG TABLET (FP) PO PRN (14:34)
[2016-12-15] MEDS ORDERED: diphenhydrAMINE HCL 50 MG CAPSULE PO PRN (14:34)
[2016-12-15] MEDS ORDERED: MAGNESIUM HYDROX 2400MG/30ML ORAL SUSPENSION 30 ML CUP PO PRN (14:34)
[2016-12-15] MEDS ORDERED: hydrOXYzine PAMOATE 50 MG CAPSULE (FP) PO PRN (14:34)
[2016-12-15] MEDS ORDERED: chlordiazePOXIDE HCL 25 MG CAPSULE PO PRN (14:34)
[2016-12-15] MEDS ORDERED: guaiFENesin/D-METHORPHAN HB 10 ML UNIT-DOSE CUPS PO PRN (14:34)
[2016-12-15] MEDS ORDERED: LOPERAMIDE HCL 2 MG CAPSULE PO PRN (14:34)
[2016-12-15] MEDS ORDERED: MAGNESIUM CITRATE 300 ML BOTTLE PO PRN (14:34)
[2016-12-15] MEDS ORDERED: MAG HYDROX/AL HYDROX/SIMETH 30 ML UNIT-DOSE CUP PO PRN (14:34)
[2016-12-15] MEDS ORDERED: P-EPHED 60MG/TRIPROLIDI 2.5MG TABLET PO PRN (14:34)
[2016-12-15] MEDS ORDERED: ACETAMINOPHEN 325 MG TABLET (FP) PO PRN (14:34)
[2016-12-15] MEDS ORDERED: chlordiazePOXIDE HCL 25 MG CAPSULE PO ONE (14:39)
--- NOTE | 2016-12-15 14:39 | CONSULT ---
[facility] Psychiatric Consult - Data Date of interview: 12/15/16 Admission source: [facility] Identifying data: This is 51 years old male with no psychiatric hospitalization history intoxicated with: Alcohol, Nicotine, Cannabis and Barbiturates Substance Abuse History: Urine Drug Screen Results: THC-Marijuana, BAR- Barbiturates. - Smoking Cessation. Smoking history: Current every day smoker. Have you smoked in the past 12 months: Yes. Aproximately how many cigarettes per day: 6. Cigars Per Day: 0. Hx Chewing Tobacco Use: No. Initiated information on smoking cessation: Yes. 'Breaking Loose' booklet given: (GIVEN ON UNIT.). - Substance & Tx. History. Hx Alcohol Use: Yes. Hx Substance Use: Yes. Substance Use Type: Alcohol. Hx Substance Use Treatment: Yes (Previous detox admissions at [facility] in past.). - Substances Abused. Alcohol. Route: Oral. Frequency: Daily. Amount used: 6-7 24 oz beers. Age of first use: 19. Date of Last Use: 12/14/16. Marijuana/Hashish. Route: Smoking. Frequency: 1-3 times last 30 days. Amount used: 1 bag. Age of first use: 19. Date of Last Use: 12/11/16 Medical History: Epilepsy, ambulates with cane, head trauma history, Psychiatric History: Denies psychiatric history, reports no psychiatric medications usage Physical/Sexual Abuse/Trauma History: Denies Additional Comment: Urine Drug Screen Results: THC-Marijuana, BAR-Barbiturates. Observation. Detox Unit Care Protocol Mental Status Exam - Mental Status Exam Alert and Oriented to: Person Cognitive Function: Fair Patient Appearance: Well Groomed Mood: Anxious Affect: Mood Congruent Patient Behavior: Cooperative Speech Pattern: Appropriate Voice Loudness: Normal Thought Process: Goal Oriented Thought Disorder: Being Controlled Hallucinations: Denies Suicidal Ideation: Denies Homicidal Ideation: Denies Insight/Judgement: Fair Sleep: Difficulty falling asleep Appetite: Weight loss Muscle strength/Tone: Clonus Gait/Station: Shuffling Additional Comments: Observation. Detox Unit Care Protocol Psychiatric Findings - Problem List ([place] 1, 2,3) (1) History of traumatic injury of head Current Visit: Yes Status: Acute (2) Alcohol dependence Current Visit: No Status: Acute (3) Alcohol dependence with uncomplicated withdrawal Current Visit: No Status: Chronic (4) Cannabis dependence Current Visit: No Status: Chronic (5) Mild alcohol abuse in early remission in controlled environment Current Visit: No Status: Chronic (6) Nicotine dependence Current Visit: No Status: Chronic Qualifiers: Nicotine product type: cigarettes Substance use status: uncomplicated Qualified Code(s): F17.210 - Nicotine dependence, cigarettes, uncomplicated (7) Barbiturate abuse Current Visit: Yes Status: Acute (8) Drug-induced mood disorder Current Visit: Yes Status: Suspected - Initial Treatment Plan Initial Treatment Plan: Observation. Detox Unit Care Protocol
[2016-12-15] MEDS: NICOTINE 14 MG/24 HOURS TOPICAL PATCH TD SCH (14:46)
[2016-12-15] MEDS: PHENYTOIN NA EXTENDED 100 MG CAPSULE (FP) PO SCH ×2 (15:27→22:18)
--- NOTE | 2016-12-15 15:38 | EKG ---
Test Reason : Blood Pressure : / mmHG Vent. Rate : 072 BPM Atrial Rate : 072 BPM P-R Int : 126 ms QRS Dur : 088 ms QT Int : 416 ms P-R-T Axes : 047 -09 010 degrees QTc Int : 455 ms NORMAL SINUS RHYTHM NORMAL ECG WHEN COMPARED WITH ECG OF 14-OCT-2016 23:13, NO SIGNIFICANT CHANGE WAS FOUND Confirmed by RONNIE KENDRICK MD ([id number]) on 12/15/2016 3:38:29 PM Referred By: Confirmed By:RONNIE KENDRICK MD
[2016-12-15 16:57] LABS: URINE APPEARANCE CLEAR; URINE BILIRUBIN NEGATIVE (NEGATIVE); URINE BLOOD 1+ (NEGATIVE); URINE COLOR YELLOW; URINE GLUCOSE (UA) NEGATIVE (NEGATIVE); URINE KETONE 1+ (NEGATIVE); URINE LEUK ESTERASE NEGATIVE (NEGATIVE); URINE NITRITE NEGATIVE (NEGATIVE); URINE PROTEIN NEGATIVE (NEGATIVE); URINE UROBILINOGEN NEGATIVE mg/dL (0.2-1.0)
[2016-12-15] MEDS: chlordiazePOXIDE HCL 25 MG CAPSULE PO SCH ×2 (17:44→22:18)
[2016-12-15 18:09] LABS: URINE BACTERIA RARE /hpf (NONE SEEN); URINE MUCUS RARE; URINE RBC 2 /hpf (0-3); URINE WBC 1 /hpf (3-5)
[2016-12-15] MEDS: THIAMINE HCL 100 MG TABLET (FP) PO SCH (22:18)
[2016-12-15] MEDS: DIVALPROEX SODIUM 500 MG TABLET E.C. PO SCH (22:18)
[2016-12-16] MEDS: PHENYTOIN NA EXTENDED 100 MG CAPSULE (FP) PO SCH ×3 (05:25→22:27)
[2016-12-16] MEDS: chlordiazePOXIDE HCL 25 MG CAPSULE PO SCH ×4 (05:26→22:27)
[2016-12-16 10:15] LABS: MCH 32.2 pg (25.7-33.7); MCHC 33.5 g/dl (32.0-35.9); MEAN PLT VOLUME 11.4 fl (7.5-11.1); PLATELET COUNT 175 K/MM3 (134-434); RDW 13.7 % (11.9-15.9); WHITE BLOOD COUNT 5.2 K/mm3 (4.0-10.0)
[2016-12-16] MEDS: NICOTINE 14 MG/24 HOURS TOPICAL PATCH TD SCH (10:23)
[2016-12-16] MEDS: PRENATAL VITAMINS W/ FOLIC ACID TABLET (FP) PO SCH (10:23)
[2016-12-16] MEDS: DIVALPROEX SODIUM 500 MG TABLET E.C. PO SCH ×2 (10:23→22:27)
[2016-12-16 10:32] LABS: ALBUMIN 4.1 g/dl (3.4-5.0); ALK PHOS 314 U/L (45-117); ANION GAP 12 (8-16); BILIRUBIN,TOTAL 0.8 mg/dL (0.2-1.0); CALCIUM 9.4 mg/dL (8.5-10.1); CO2 27 mmol/L (21-32); CREATININE 0.5 mg/dL (0.7-1.3); GLUCOSE,RANDOM 79 mg/dL (74-106); SGOT/AST 211 U/L (15-37); SGPT/ALT 134 U/L (12-78); TOT PROT 7.7 g/dl (6.4-8.2)
[2016-12-16 10:39] LABS: SICKLE CELL SCREEN NEGATIVE (NEGATIVE)
--- NOTE | 2016-12-16 11:01 | PN ---
[facility] CIWA - CIWA Score Nausea/Vomitin-No Nausea/No Vomiting Muscle Tremors: 4-Moderate,w/Arms Extend Anxiety: 4-Mod. Anxious/Guarded Agitation: 4-Moderately Restless Paroxysmal Sweats: 1-Minimal Palms Moist Orientation: 0-Oriented Tacttile Disturbances: 3-Moderate Itch/Numb/Burn Auditory Disturbances: 0-None Visual Disturbances: 0-None Headache: 0-None Present CIWA-Ar Total Score: 16 S Progress Note (SOAP) Subjective: ANXIETY,TREMORS,SWEATS,INTERMITTENT SLEEP. Objective: 12/16/16 11:00 Vital Signs Temperature 97.3 F L 12/16/16 09:16 Pulse Rate 79 12/16/16 09:16 Respiratory Rate 18 12/16/16 09:16 Blood Pressure 117/84 12/16/16 09:16 O2 Sat by Pulse Oximetry (%) Laboratory Last Values WBC 5.2 K/mm3 (4.0-10.0) D 12/16/16 06:00 RBC 4.01 M/mm3 (4.00-5.60) 12/16/16 06:00 Hgb 12.9 GM/dL (11.7-16.9) 12/16/16 06:00 Hct 38.5 % (35.4-49) 12/16/16 06:00 MCV 96.0 fl (80-96) 12/16/16 06:00 MCH 32.2 pg (25.7-33.7) 12/16/16 06:00 MCHC 33.5 g/dl (32.0-35.9) 12/16/16 06:00 RDW 13.7 % (11.9-15.9) 12/16/16 06:00 Plt Count 175 K/MM3 (134-434) 12/16/16 06:00 MPV 11.4 fl (7.5-11.1) H 12/16/16 06:00 Sickle Cell Screen Negative (NEGATIVE) 12/16/16 06:00 Sodium 135 mmol/L (136-145) L 12/16/16 06:00 Potassium 4.2 mmol/L (3.5-5.1) 12/16/16 06:00 Chloride 96 mmol/L (98-107) L 12/16/16 06:00 Carbon Dioxide 27 mmol/L (21-32) 12/16/16 06:00 Anion Gap 12 (8-16) 12/16/16 06:00 BUN 4 mg/dL (7-18) L 12/16/16 06:00 Creatinine 0.5 mg/dL (0.7-1.3) L 12/16/16 06:00 Creat Clearance w eGFR > 60 (>60) 12/16/16 06:00 Random Glucose 79 mg/dL (74-106) 12/16/16 06:00 Calcium 9.4 mg/dL (8.5-10.1) 12/16/16 06:00 Total Bilirubin 0.8 mg/dL (0.2-1.0) D 12/16/16 06:00 AST 211 U/L (15-37) H D 12/16/16 06:00 ALT 134 U/L (12-78) H D 12/16/16 06:00 Alkaline Phosphatase 314 U/L (45-117) H D 12/16/16 06:00 Total Protein 7.7 g/dl (6.4-8.2) 12/16/16 06:00 Albumin 4.1 g/dl (3.4-5.0) 12/16/16 06:00 Urine Color Yellow 12/15/16 14:55 Urine Appearance Clear 12/15/16 14:55 Urine pH 7.0 (5.0-8.0) D 12/15/16 14:55 Ur Specific [place] 1.020 (1.005-1.025) 12/15/16 14:55 Urine Protein Negative (NEGATIVE) 12/15/16 14:55 Urine Glucose (UA) Negative (NEGATIVE) 12/15/16 14:55 Urine Ketones 1+ (NEGATIVE) H 12/15/16 14:55 Urine Blood 1+ (NEGATIVE) H 12/15/16 14:55 Urine Nitrite Negative (NEGATIVE) 12/15/16 14:55 Urine Bilirubin Negative (NEGATIVE) 12/15/16 14:55 Urine Urobilinogen Negative mg/dL (0.2-1.0) 12/15/16 14:55 Ur Leukocyte Esterase Negative (NEGATIVE) 12/15/16 14:55 Urine RBC 2 /hpf (0-3) 12/15/16 14:55 Urine WBC 1 /hpf (3-5) 12/15/16 14:55 Ur Epithelial Cells Rare /hpf (FEW) 12/15/16 14:55 Urine Bacteria Rare /hpf (NONE SEEN) 12/15/16 14:55 Urine Mucus Rare 12/15/16 14:55 Assessment: 12/16/16 11:00 WITHDRAWAL SX Plan: CONTINUE DETOX
[2016-12-16 14:04] LABS: HIV 1 & 2 AB NEGATIVE; HIV 1 AGp24 NEGATIVE
[2016-12-16] MEDS: THIAMINE HCL 100 MG TABLET (FP) PO SCH (22:27)
[2016-12-17] MEDS: PHENYTOIN NA EXTENDED 100 MG CAPSULE (FP) PO SCH ×3 (05:35→22:17)
[2016-12-17] MEDS: chlordiazePOXIDE HCL 25 MG CAPSULE PO SCH ×2 (05:35→10:30)
[2016-12-17] MEDS: NICOTINE 14 MG/24 HOURS TOPICAL PATCH TD SCH (10:29)
[2016-12-17] MEDS: DIVALPROEX SODIUM 500 MG TABLET E.C. PO SCH ×2 (10:29→22:17)
[2016-12-17] MEDS: PRENATAL VITAMINS W/ FOLIC ACID TABLET (FP) PO SCH (10:29)
--- NOTE | 2016-12-17 14:46 | PN ---
[facility] CIWA - CIWA Score Nausea/Vomitin-No Nausea/No Vomiting Muscle Tremors: 4-Moderate,w/Arms Extend Anxiety: 3 Agitation: 2 Paroxysmal Sweats: 1-Minimal Palms Moist Orientation: 0-Oriented Tacttile Disturbances: 3-Moderate Itch/Numb/Burn Auditory Disturbances: 0-None Visual Disturbances: 2-Mild Sensitivity Headache: 0-None Present CIWA-Ar Total Score: 15 [facility] Progress Note (SOAP) Subjective: Fatigue, Tremors. Objective: PT. A & O X 3, OBSERVED AMBULATING ON UNIT. NO ACUTE DISTRESS. 12/17/16 14:43 Vital Signs Temperature 97.1 F L 12/17/16 13:42 Pulse Rate 85 12/17/16 13:42 Respiratory Rate 20 12/17/16 13:42 Blood Pressure 120/85 12/17/16 13:42 O2 Sat by Pulse Oximetry (%) Laboratory Tests 12/15/16 12/15/16 12/15/16 07:00 07:00 14:55 WBC RBC Hgb Hct MCV MCH MCHC RDW Plt Count MPV Sickle Cell Screen Sodium Potassium Chloride Carbon Dioxide Anion Gap BUN Creatinine Creat Clearance w eGFR Random Glucose Calcium Total Bilirubin AST ALT Alkaline Phosphatase Total Protein Albumin Urine Color Yellow Urine Appearance Clear Urine pH 7.0 D Ur Specific [place] 1.020 Urine Protein Negative Urine Glucose (UA) Negative Urine Ketones 1+ H Urine Blood 1+ H Urine Nitrite Negative Urine Bilirubin Negative Urine Urobilinogen Negative Ur Leukocyte Esterase Negative Urine RBC 2 Urine WBC 1 Ur Epithelial Cells Rare Urine Bacteria Rare Urine Mucus Rare Phenytoin Valproic Acid RPR Titer Hepatitis C Antibody <0.1 HIV 1&2 Antibody Screen Negative HIV P24 Antigen Negative 12/16/16 12/16/16 12/16/16 06:00 06:00 06:00 WBC 5.2 D RBC 4.01 Hgb 12.9 Hct 38.5 MCV 96.0 MCH 32.2 MCHC 33.5 RDW 13.7 Plt Count 175 MPV 11.4 H Sickle Cell Screen Negative Sodium 135 L Potassium 4.2 Chloride 96 L Carbon Dioxide 27 Anion Gap 12 BUN 4 L Creatinine 0.5 L Creat Clearance w eGFR > 60 Random Glucose 79 Calcium 9.4 Total Bilirubin 0.8 D AST 211 H D ALT 134 H D Alkaline Phosphatase 314 H D Total Protein 7.7 Albumin 4.1 Urine Color Urine Appearance Urine pH Ur Specific [place] Urine Protein Urine Glucose (UA) Urine Ketones Urine Blood Urine Nitrite Urine Bilirubin Urine Urobilinogen Ur Leukocyte Esterase Urine RBC Urine WBC Ur Epithelial Cells Urine Bacteria Urine Mucus Phenytoin Valproic Acid RPR Titer Nonreactive Hepatitis C Antibody HIV 1&2 Antibody Screen HIV P24 Antigen 12/16/16 12/16/16 07:00 07:00 WBC RBC Hgb Hct MCV MCH MCHC RDW Plt Count MPV Sickle Cell Screen Sodium Potassium Chloride Carbon Dioxide Anion Gap BUN Creatinine Creat Clearance w eGFR Random Glucose Calcium Total Bilirubin AST ALT Alkaline Phosphatase Total Protein Albumin Urine Color Urine Appearance Urine pH Ur Specific [place] Urine Protein Urine Glucose (UA) Urine Ketones Urine Blood Urine Nitrite Urine Bilirubin Urine Urobilinogen Ur Leukocyte Esterase Urine RBC Urine WBC Ur Epithelial Cells Urine Bacteria Urine Mucus Phenytoin 6.0 L D Valproic Acid 68.921 RPR Titer Hepatitis C Antibody HIV 1&2 Antibody Screen HIV P24 Antigen LABS NOTED. PHENYTOIN AND DEPAKOTE LEVELS NOTED. 12/17/16 14:50 Assessment: 12/17/16 14:44 WITHDRAWAL SYMPTOMS. Plan: CONTINUE DETOX. PHENYTOIN, 200 MG PO X 1 ORDERED STAT FOR LOW ADMISSION PHENYTOIN LEVEL. HEPATIC FUNCTION PANEL TOMORROW FOR HIGH ADMISSION LIVER ENZYME LEVELS.
[2016-12-17] MEDS ORDERED: PHENYTOIN NA EXTENDED 100 MG CAPSULE (FP) PO ONE (14:49)
[2016-12-17] MEDS: chlordiazePOXIDE 5 MG CAPSULE PO SCH ×2 (18:04→22:17)
[2016-12-17] MEDS: THIAMINE HCL 100 MG TABLET (FP) PO SCH (22:18)
[2016-12-18] MEDS: chlordiazePOXIDE 5 MG CAPSULE PO SCH ×2 (05:24→10:12)
[2016-12-18] MEDS: PHENYTOIN NA EXTENDED 100 MG CAPSULE (FP) PO SCH ×3 (05:24→22:15)
[2016-12-18] MEDS: NICOTINE 14 MG/24 HOURS TOPICAL PATCH TD SCH (10:12)
[2016-12-18] MEDS: DIVALPROEX SODIUM 500 MG TABLET E.C. PO SCH ×2 (10:12→22:15)
[2016-12-18] MEDS: PRENATAL VITAMINS W/ FOLIC ACID TABLET (FP) PO SCH (10:12)
[2016-12-18 10:37] LABS: ALBUMIN 3.6 g/dl (3.4-5.0)
[2016-12-18 10:42] LABS: BILIRUBIN,DIRECT 0.2 mg/dL (0.0-0.2); BILIRUBIN,TOTAL 0.5 mg/dL (0.2-1.0); TOT PROT 7.4 g/dl (6.4-8.2)
--- NOTE | 2016-12-18 14:11 | PN ---
S Progress Note (SOAP) Subjective: Sweating, anxious, interrupted sleep Objective: 12/18/16 14:09 Last Vital Signs Temp Pulse Resp BP Pulse Ox 97.3 F L 85 18 121/80 12/18/16 13:39 12/18/16 13:39 12/18/16 13:39 12/18/16 13:39 Laboratory Tests 12/15/16 12/15/16 12/15/16 07:00 07:00 14:55 WBC RBC Hgb Hct MCV MCH MCHC RDW Plt Count MPV Sickle Cell Screen Sodium Potassium Chloride Carbon Dioxide Anion Gap BUN Creatinine Creat Clearance w eGFR Random Glucose Calcium Total Bilirubin Direct Bilirubin AST ALT Alkaline Phosphatase Total Protein Albumin Urine Color Yellow Urine Appearance Clear Urine pH 7.0 D Ur Specific [place] 1.020 Urine Protein Negative Urine Glucose (UA) Negative Urine Ketones 1+ H Urine Blood 1+ H Urine Nitrite Negative Urine Bilirubin Negative Urine Urobilinogen Negative Ur Leukocyte Esterase Negative Urine RBC 2 Urine WBC 1 Ur Epithelial Cells Rare Urine Bacteria Rare Urine Mucus Rare Phenytoin Valproic Acid RPR Titer Hepatitis C Antibody <0.1 HIV 1&2 Antibody Screen Negative HIV P24 Antigen Negative 12/16/16 12/16/16 12/16/16 06:00 06:00 06:00 WBC 5.2 D RBC 4.01 Hgb 12.9 Hct 38.5 MCV 96.0 MCH 32.2 MCHC 33.5 RDW 13.7 Plt Count 175 MPV 11.4 H Sickle Cell Screen Negative Sodium 135 L Potassium 4.2 Chloride 96 L Carbon Dioxide 27 Anion Gap 12 BUN 4 L Creatinine 0.5 L Creat Clearance w eGFR > 60 Random Glucose 79 Calcium 9.4 Total Bilirubin 0.8 D Direct Bilirubin AST 211 H D ALT 134 H D Alkaline Phosphatase 314 H D Total Protein 7.7 Albumin 4.1 Urine Color Urine Appearance Urine pH Ur Specific [place] Urine Protein Urine Glucose (UA) Urine Ketones Urine Blood Urine Nitrite Urine Bilirubin Urine Urobilinogen Ur Leukocyte Esterase Urine RBC Urine WBC Ur Epithelial Cells Urine Bacteria Urine Mucus Phenytoin Valproic Acid RPR Titer Nonreactive Hepatitis C Antibody HIV 1&2 Antibody Screen HIV P24 Antigen 12/16/16 12/16/16 12/18/16 07:00 07:00 08:50 WBC RBC Hgb Hct MCV MCH MCHC RDW Plt Count MPV Sickle Cell Screen Sodium Potassium Chloride Carbon Dioxide Anion Gap BUN Creatinine Creat Clearance w eGFR Random Glucose Calcium Total Bilirubin 0.5 D Direct Bilirubin 0.2 AST 73 H D ALT 86 H D Alkaline Phosphatase 327 H Total Protein 7.4 Albumin 3.6 Urine Color Urine Appearance Urine pH Ur Specific [place] Urine Protein Urine Glucose (UA) Urine Ketones Urine Blood Urine Nitrite Urine Bilirubin Urine Urobilinogen Ur Leukocyte Esterase Urine RBC Urine WBC Ur Epithelial Cells Urine Bacteria Urine Mucus Phenytoin 6.0 L D Valproic Acid 68.921 RPR Titer Hepatitis C Antibody HIV 1&2 Antibody Screen HIV P24 Antigen Labs noted: abnormal UA Assessment: 12/18/16 14:10 Withdrawal symptoms Noted with abnormal UA Plan: Continue detox Abnormal UA: encouraged to drink lots of water, repeat UA
[2016-12-18] MEDS: chlordiazePOXIDE HCL 10 MG CAPSULE PO SCH ×2 (17:12→22:15)
[2016-12-18] MEDS: THIAMINE HCL 100 MG TABLET (FP) PO SCH (22:15)
[2016-12-19] MEDS: chlordiazePOXIDE HCL 10 MG CAPSULE PO SCH (05:29)
[2016-12-19] MEDS: PHENYTOIN NA EXTENDED 100 MG CAPSULE (FP) PO SCH (05:29)
[2016-12-19 09:19] VITALS: BP 118/80; PULSE 87; TEMP 97.2
--- NOTE | 2016-12-19 12:32 | DS ---
[facility] Detox Discharge Summary Admission Date: 12/15/16 Discharge Date: 12/19/16 - History Present History: Alcohol Dependence, Cannabis Dependence Pertinent Past History: Seizure disorder - Physical Exam Results Vital Signs: Vital Signs Temperature 97.2 F L 12/19/16 09:18 Pulse Rate 87 12/19/16 09:18 Respiratory Rate 18 12/19/16 09:18 Blood Pressure 118/80 12/19/16 09:18 O2 Sat by Pulse Oximetry (%) Pertinent Admission Physical Exam Findings: Withdrawal sx. Laboratory Last Values WBC 5.2 K/mm3 (4.0-10.0) D 12/16/16 06:00 RBC 4.01 M/mm3 (4.00-5.60) 12/16/16 06:00 Hgb 12.9 GM/dL (11.7-16.9) 12/16/16 06:00 Hct 38.5 % (35.4-49) 12/16/16 06:00 MCV 96.0 fl (80-96) 12/16/16 06:00 MCH 32.2 pg (25.7-33.7) 12/16/16 06:00 MCHC 33.5 g/dl (32.0-35.9) 12/16/16 06:00 RDW 13.7 % (11.9-15.9) 12/16/16 06:00 Plt Count 175 K/MM3 (134-434) 12/16/16 06:00 MPV 11.4 fl (7.5-11.1) H 12/16/16 06:00 Sickle Cell Screen Negative (NEGATIVE) 12/16/16 06:00 Sodium 135 mmol/L (136-145) L 12/16/16 06:00 Potassium 4.2 mmol/L (3.5-5.1) 12/16/16 06:00 Chloride 96 mmol/L (98-107) L 12/16/16 06:00 Carbon Dioxide 27 mmol/L (21-32) 12/16/16 06:00 Anion Gap 12 (8-16) 12/16/16 06:00 BUN 4 mg/dL (7-18) L 12/16/16 06:00 Creatinine 0.5 mg/dL (0.7-1.3) L 12/16/16 06:00 Creat Clearance w eGFR > 60 (>60) 12/16/16 06:00 Random Glucose 79 mg/dL (74-106) 12/16/16 06:00 Calcium 9.4 mg/dL (8.5-10.1) 12/16/16 06:00 Total Bilirubin 0.5 mg/dL (0.2-1.0) D 12/18/16 08:50 Direct Bilirubin 0.2 mg/dL (0.0-0.2) 12/18/16 08:50 AST 73 U/L (15-37) H D 12/18/16 08:50 ALT 86 U/L (12-78) H D 12/18/16 08:50 Alkaline Phosphatase 327 U/L (45-117) H 12/18/16 08:50 Total Protein 7.4 g/dl (6.4-8.2) 12/18/16 08:50 Albumin 3.6 g/dl (3.4-5.0) 12/18/16 08:50 Urine Color Yellow 12/15/16 14:55 Urine Appearance Clear 12/15/16 14:55 Urine pH 7.0 (5.0-8.0) D 12/15/16 14:55 Ur Specific [place] 1.020 (1.005-1.025) 12/15/16 14:55 Urine Protein Negative (NEGATIVE) 12/15/16 14:55 Urine Glucose (UA) Negative (NEGATIVE) 12/15/16 14:55 Urine Ketones 1+ (NEGATIVE) H 12/15/16 14:55 Urine Blood 1+ (NEGATIVE) H 12/15/16 14:55 Urine Nitrite Negative (NEGATIVE) 12/15/16 14:55 Urine Bilirubin Negative (NEGATIVE) 12/15/16 14:55 Urine Urobilinogen Negative mg/dL (0.2-1.0) 12/15/16 14:55 Ur Leukocyte Esterase Negative (NEGATIVE) 12/15/16 14:55 Urine RBC 2 /hpf (0-3) 12/15/16 14:55 Urine WBC 1 /hpf (3-5) 12/15/16 14:55 Ur Epithelial Cells Rare /hpf (FEW) 12/15/16 14:55 Urine Bacteria Rare /hpf (NONE SEEN) 12/15/16 14:55 Urine Mucus Rare 12/15/16 14:55 Phenytoin 6.0 ug/ml (10.0-20.0) L D 12/16/16 07:00 Valproic Acid 68.921 ug/ml (50-100) 12/16/16 07:00 RPR Titer Nonreactive (NONREACTIVE) 12/16/16 06:00 Hepatitis C Antibody <0.1 s/co ratio (0.0-0.9) 12/15/16 07:00 HIV 1&2 Antibody Screen Negative 12/15/16 07:00 HIV P24 Antigen Negative 12/15/16 07:00 labs noted - Treatment Hospital Course: Detox Protocol Followed, Detoxed Safely, Responded well, Discharged Condition Good, Rehab Referral Accepted Patient has Accepted a Rehab Referral to: [facility] - Medication Discharge Medications: Ambulatory Orders Folic Acid - 1 mg PO DAILY 05/11/16 Divalproex Sodium [Depakote] 1,000 mg PO BID #60 mg 10/31/16 Phenytoin Na Extended [Dilantin -] 100 mg PO TID #90 mg 10/31/16 Multivitamin [Poly-Vitamin] 1 each PO DAILY 12/15/16 Thiamine HCl [B-1] 100 mg PO DAILY 12/15/16 - Diagnosis (1) Alcohol dependence with uncomplicated withdrawal Status: Acute (2) Cannabis dependence Status: Chronic (3) History of traumatic injury of head Status: Chronic (4) Nicotine dependence Status: Chronic Qualifiers: Nicotine product type: cigarettes Substance use status: in withdrawal Qualified Code(s): F17.213 - Nicotine dependence, cigarettes, with withdrawal (5) Seizure disorder Status: Chronic (6) Drug-induced mood disorder Status: Suspected - AMA Did Patient Leave Against Medical Advice: No
[2016-12-19 16:59] LABS: URINE APPEARANCE CLEAR; URINE BILIRUBIN NEGATIVE (NEGATIVE); URINE BLOOD NEGATIVE (NEGATIVE); URINE COLOR LTYELLOW; URINE GLUCOSE (UA) NEGATIVE (NEGATIVE); URINE KETONE NEGATIVE (NEGATIVE); URINE LEUK ESTERASE NEGATIVE (NEGATIVE); URINE NITRITE NEGATIVE (NEGATIVE); URINE PROTEIN NEGATIVE (NEGATIVE); URINE UROBILINOGEN NEGATIVE mg/dL (0.2-1.0)
== END 2016-12-19 09:38 | disposition home or self-care (01) | DRG 775 ==
LOC: YASAS 08:55 → Y3N 13:05
PROVIDERS: ADMIT Internal Medicine; ATTEND Internal Medicine
PROC: HZ2ZZZZ Detoxification Services for Substance Abuse Treatment (ICD-10-PCS; principal; 2016-12-15)
DX: F10.230 Alcohol dependence with withdrawal, uncomplicated (principal); F12.20 Cannabis dependence, uncomplicated; F17.213 Nicotine dependence, cigarettes, with withdrawal; F19.24 Other psychoactive substance dependence with psychoactive substance-induced mood disorder; G40.909 Epilepsy, unspecified, not intractable, without status epilepticus; R82.90 Unspecified abnormal findings in urine; R26.2 Difficulty in walking, not elsewhere classified; Z99.89 Dependence on other enabling machines and devices; Z87.820 Personal history of traumatic brain injury
CPT/HCPCS: 36415; 80053; 80076; 80164; 80185; 81003; 81015; 85027; 85660; 86593; 86803; 87389; 93005; 93010

== ENCOUNTER 2017-10-21 20:24 | Inpatient (IN) | payer OTHER ==
[2017-10-21 21:23] VITALS: BMI 24.2
[2017-10-21] MEDS ORDERED: MELATONIN 5 MG TABLETS PO PRN (22:00)
--- NOTE | 2017-10-21 22:58 | HP ---
CIWA Score - CIWA Score Nausea/Vomitin-No Nausea/No Vomiting Muscle Tremors: 4-Moderate,w/Arms Extend Anxiety: 4-Mod. Anxious/Guarded Agitation: 4-Moderately Restless Paroxysmal Sweats: 3 Orientation: 3-Disoriented Date>2 days Tacttile Disturbances: 2-Mild Itch/Numbness/Burn Auditory Disturbances: 0-None Visual Disturbances: 0-None Headache: 3-Moderate CIWA-Ar Total Score: 23 Admission ROS S - HPI Chief Complaint: C/O WITHDRAWAL SX'S. SEEKING DETOX TXMENT Allergies/Adverse Reactions: Allergies Allergy/AdvReac Type Severity Reaction Status Date / Time Fish Containing Products Allergy Severe Hives Verified 10/21/17 22:26 No Known Drug Allergies Allergy Verified 10/21/17 22:26 History of Present Illness: 52 Y.O. MALE WITH LONG HX/O ALCOHOLISM HHERE FOR DETOX. CLIENT IS KNOWN TO THIS PROGRAM. LAST HERE 11/2016. REFERRED TODAY BY [facility] FOR ALCOHOL INTOXICATION. CLIENT IS A S/P FALL HITTING HIS HEAD. HE HAS BEEN CLEARED BY [facility]. DENIES ANY SIGNIFICANT PERIOD OF CLEAN TIME. REPORTS HX/O ETOH INDUCED SEIZURES. DENIES BLACKOUTS/SI/HI. PMHX: SEIZURE PSYC: DENIES Exam Limitations: No Limitations - Ebola screening Have you traveled outside of the country in the last 21 days: No (N) Have you had contact with anyone from an Ebola affected area: No Have you been sick,other than usual withdrawal symptoms: No Do you have a fever: No - Review of Systems Constitutional: Chills, Loss of Appetite, Malaise, Night Sweats, Changes in sleep EENT: reports: No Symptoms Reported Respiratory: reports: No Symptoms reported Cardiac: reports: No Symptoms Reported GI: reports: Nausea, Poor Appetite, Poor Fluid Intake : reports: No Symptoms Reported Musculoskeletal: reports: No Symptoms Reported Integumentary: reports: Flushing, Other (LBROW ABRASION) Neuro: reports: Seizure Endocrine: reports: No Symptoms Reported Hematology: reports: No Symptoms Reported Psychiatric: reports: Anxious, Depressed Other Systems: Reviewed and Negative Patient History - Patient Medical History Hx Anemia: No Hx Asthma: No Hx Chronic Obstructive Pulmonary Disease (COPD): No Hx Cancer: No Hx Cardiac Disorders: No Hx Congestive Heart Failure: No Hx Hypertension: No Hx Hypercholesterolemia: No Hx Pacemaker: No HX Cerebrovascular Accident: No Hx Seizures: Yes (Had seizure 2 days ago) Hx Dementia: No Hx Diabetes: No Hx Gastrointestinal Disorders: No Hx Liver Disease: No Hx Genitourinary Disorders: No Hx Sexually Transmitted Disorders: No Hx Renal Disease (ESRD): No Hx Thyroid Disease: No Hx Human Immunodeficiency Virus (HIV): No (Last tested: 09/2016: NEGATIVE.) Hx Hepatitis C: No (Never Tested.) Hx Depression: No Hx Suicide Attempt: No (PATIENT DENIES CURRENT SI / HI.) Hx Bipolar Disorder: No Hx Schizophrenia: No Other Medical History: DENIES - Patient Surgical History Past Surgical History: Yes Hx Neurologic Surgery: Yes (metal plate placed 2008 (head);no recollection how he wound up in hospital ) Hx Cataract Extraction: No Hx Cardiac Surgery: No Hx Lung Surgery: No Hx Breast Surgery: No Hx Breast Biopsy: No Hx Abdominal Surgery: No Hx Appendectomy: No Hx Cholecystectomy: No Hx Genitourinary Surgery: No Hx Section: No Hx Orthopedic Surgery: No Anesthesia Reaction: No - PPD History Previous Implant?: Yes Documented Results: Negative w/proof Date: 03/17/16 Results: 0 mm PPD to be Administered?: Yes - Smoking Cessation Smoking history: Current every day smoker Have you smoked in the past 12 months: Yes Aproximately how many cigarettes per day: 6 Cigars Per Day: 0 Hx Chewing Tobacco Use: No Initiated information on smoking cessation: Yes 'Breaking Loose' booklet given: 10/21/17 - Substance & Tx. History Hx Alcohol Use: Yes Hx Substance Use: Yes Substance Use Type: Alcohol, Marijuana Hx Substance Use Treatment: Yes ([facility]) - Substances Abused Alcohol Route: Oral Frequency: Daily Amount used: beer 6 of 24 oz Age of first use: 9 Date of Last Use: 10/21/17 Marijuana/Hashish Route: Smoking Frequency: Daily Amount used: $5 Age of first use: 19 Date of Last Use: 10/21/17 Family Disease History - Family Disease History Family History: Denies Admission Physical Exam S - Vital Signs Vital Signs: Vital Signs - 24 hr 10/21/17 21:21 Temperature 98.7 F Pulse Rate 84 Respiratory 18 Rate Blood Pressure 133/83 - Physical General Appearance: Yes: Appropriately Dressed, Mild Distress, Alcohol on Breath , Tremorous, Sweating, Anxious HEENTM: Yes: EOMI, Normal ENT Inspection, Normocephalic, Normal Voice, DEX Respiratory: Yes: Chest Non-Tender, Lungs Clear, Normal Breath Sounds, No Respiratory Distress, No Accessory Muscle Use Neck: Yes: No masses,lesions,Nodules, Supple, Trachea in good position Breast: Yes: Breast Exam Deferred Cardiology: Yes: Regular Rhythm, Regular Rate, S1, S2 Abdominal: Yes: Normal Bowel Sounds, Non Tender, Soft, Increased Bowel Sounds Genitourinary: Yes: Within Normal Limits Back: Yes: Normal Inspection Musculoskeletal: Yes: full range of Motion, Gait Steady Extremities: Yes: Normal Range of Motion, Non-Tender, Tremors Neurological: Yes: recreation technician II-XII NML intact, Alert Integumentary: Yes: Warm, Moist, Other (FLUSHED) Lymphatic: Yes: Within Normal Limits - Diagnostic (1) Alcohol dependence with uncomplicated withdrawal Current Visit: No Status: Chronic (2) Cannabis dependence Current Visit: Yes Status: Chronic (3) Nicotine dependence Current Visit: No Status: Chronic Qualifiers: Nicotine product type: cigarettes Substance use status: in withdrawal Qualified Code(s): F17.213 - Nicotine dependence, cigarettes, with withdrawal (4) Seizure disorder Current Visit: No Status: Chronic Comment: DEPAKOTE DILANTIN (5) Drug-induced mood disorder Current Visit: No Status: Suspected Cleared for Admission [facility] - Detox or Rehab [facility] Level of Care: Medically Managed Detox Regimen/Protocol: Librium [facility] Breath Alcohol Content Breath Alcohol Content: 0 Urine Drug Screen - Results Drug Screen Negative: No Urine Drug Screen Results: THC-Marijuana
[2017-10-21] MEDS ORDERED: MAGNESIUM CITRATE 300 ML BOTTLE PO PRN (23:02)
[2017-10-21] MEDS ORDERED: MAG HYDROX/AL HYDROX/SIMETH 30 ML UNIT-DOSE CUP PO PRN (23:02)
[2017-10-21] MEDS ORDERED: hydrOXYzine PAMOATE 50 MG CAPSULE (FP) PO PRN (23:02)
[2017-10-21] MEDS ORDERED: IBUPROFEN 400 MG TABLET (FP) PO PRN (23:02)
[2017-10-21] MEDS ORDERED: P-EPHED 60MG/TRIPROLIDI 2.5MG TABLET PO PRN (23:02)
[2017-10-21] MEDS ORDERED: LOPERAMIDE HCL 2 MG CAPSULE PO PRN (23:02)
[2017-10-21] MEDS ORDERED: chlordiazePOXIDE HCL 25 MG CAPSULE PO PRN (23:02)
[2017-10-21] MEDS ORDERED: NICOTINE POLACRILEX 2 MG GUM BC PRN (23:02)
[2017-10-21] MEDS ORDERED: MAGNESIUM HYDROX 2400MG/30ML ORAL SUSPENSION 30 ML CUP PO PRN (23:02)
[2017-10-21] MEDS ORDERED: guaiFENesin/D-METHORPHAN HB 10 ML UNIT-DOSE CUPS PO PRN (23:02)
[2017-10-21] MEDS ORDERED: MENTHOL/PHENOL 1 EACH UD MM PRN (23:02)
[2017-10-21] MEDS ORDERED: ACETAMINOPHEN 325 MG TABLET (FP) PO PRN (23:02)
[2017-10-22] MEDS: chlordiazePOXIDE HCL 25 MG CAPSULE PO SCH ×5 (00:37→22:20)
[2017-10-22] MEDS: PHENYTOIN NA EXTENDED 100 MG CAPSULE (FP) PO SCH ×3 (05:40→22:20)
[2017-10-22] MEDS ORDERED: BACITRACIN 0.9 GM PACKET ONE (09:07)
[2017-10-22 10:57] LABS: URINE APPEARANCE CLEAR; URINE BILIRUBIN NEGATIVE (<2.0 mg/dL); URINE BLOOD NEGATIVE (NEGATIVE); URINE COLOR LTYELLOW; URINE GLUCOSE (UA) NEGATIVE (NEGATIVE); URINE KETONE NEGATIVE (NEGATIVE); URINE LEUK ESTERASE NEGATIVE (NEGATIVE); URINE NITRITE NEGATIVE (NEGATIVE); URINE PROTEIN NEGATIVE (NEGATIVE)
[2017-10-22 10:58] LABS: HEMATOCRIT 36.6 % (35.4-49); HEMOGLOBIN 12.4 GM/dL (11.7-16.9); MCH 34.3 pg (25.7-33.7); MCHC 33.9 g/dl (32.0-35.9); MEAN CELL VOLUME 101.2 fl (80-96); MEAN PLT VOLUME 10.1 fl (7.5-11.1); PLATELET COUNT 158 K/MM3 (134-434); RBC 3.61 M/mm3 (4.00-5.60); RDW 12.7 % (11.9-15.9); WHITE BLOOD COUNT 4.4 K/mm3 (4.0-10.0)
[2017-10-22] MEDS: BACITRACIN 15 GM TUBE TOPICAL OINTMENT TP SCH (11:00)
[2017-10-22] MEDS: PRENATAL VITAMINS W/ FOLIC ACID TABLET (FP) PO SCH (11:00)
[2017-10-22] MEDS: NICOTINE 14 MG/24 HOURS TOPICAL PATCH TD SCH (11:00)
[2017-10-22] MEDS: DIVALPROEX SODIUM 250 MG TABLET E.C. PO SCH ×2 (11:00→22:20)
[2017-10-22 11:08] LABS: CHLORIDE 99 mmol/L (98-107); POTASSIUM 4.1 mmol/L (3.5-5.1); SODIUM 138 mmol/L (136-145)
--- NOTE | 2017-10-22 11:28 | PN ---
S CIWA - CIWA Score Nausea/Vomitin-Mild Nausea/No Vomiting Muscle Tremors: 4-Moderate,w/Arms Extend Anxiety: 4-Mod. Anxious/Guarded Agitation: 4-Moderately Restless Paroxysmal Sweats: 1-Minimal Palms Moist Orientation: 0-Oriented Tacttile Disturbances: 2-Mild Itch/Numbness/Burn Auditory Disturbances: 0-None Visual Disturbances: 0-None Headache: 2-Mild CIWA-Ar Total Score: 18 [facility] Progress Note (SOAP) Subjective: tremor sweat gi distress anxiety restlessness irritable trouble sleep at night Objective: 10/22/17 11:27 Vital Signs Temperature 97.4 F L 10/22/17 09:03 Pulse Rate 70 10/22/17 09:03 Respiratory Rate 18 10/22/17 09:03 Blood Pressure 115/82 10/22/17 09:03 O2 Sat by Pulse Oximetry (%) Laboratory Last Values WBC 4.4 K/mm3 (4.0-10.0) 10/22/17 07:40 RBC 3.61 M/mm3 (4.00-5.60) L 10/22/17 07:40 Hgb 12.4 GM/dL (11.7-16.9) 10/22/17 07:40 Hct 36.6 % (35.4-49) 10/22/17 07:40 MCV 101.2 fl (80-96) H 10/22/17 07:40 MCH 34.3 pg (25.7-33.7) H 10/22/17 07:40 MCHC 33.9 g/dl (32.0-35.9) 10/22/17 07:40 RDW 12.7 % (11.9-15.9) 10/22/17 07:40 Plt Count 158 K/MM3 (134-434) 10/22/17 07:40 MPV 10.1 fl (7.5-11.1) D 10/22/17 07:40 Urine Color Ltyellow 10/22/17 08:15 Urine Appearance Clear 10/22/17 08:15 Urine pH 8.0 (5.0-8.0) 10/22/17 08:15 Ur Specific [place] 1.015 (1.001-1.035) 10/22/17 08:15 Urine Protein Negative (NEGATIVE) 10/22/17 08:15 Urine Glucose (UA) Negative (NEGATIVE) 10/22/17 08:15 Urine Ketones Negative (NEGATIVE) 10/22/17 08:15 Urine Blood Negative (NEGATIVE) 10/22/17 08:15 Urine Nitrite Negative (NEGATIVE) 10/22/17 08:15 Urine Bilirubin Negative (<2.0 mg/dL) 10/22/17 08:15 Urine Urobilinogen 2.0 mg/dL (0.2-1.0) 10/22/17 08:15 Ur Leukocyte Esterase Negative (NEGATIVE) 10/22/17 08:15 lab noted Assessment: 10/22/17 11:28 withdrawal sx Plan: continue detox
[2017-10-22 11:30] LABS: ALBUMIN 3.4 g/dl (3.4-5.0); ALK PHOS 242 U/L (45-117); ANION GAP 10 (8-16); BILIRUBIN,TOTAL 0.5 mg/dL (0.2-1.0); BLOOD UREA NITROGEN 12 mg/dL (7-18); CALCIUM 8.5 mg/dL (8.5-10.1); CO2 29 mmol/L (21-32); CREATININE 0.7 mg/dL (0.7-1.3); GLUCOSE,RANDOM 91 mg/dL (74-106); SGOT/AST 28 U/L (15-37); SGPT/ALT 30 U/L (12-78); TOT PROT 6.9 g/dl (6.4-8.2)
--- NOTE | 2017-10-22 11:37 | CONSULT ---
[facility] Psychiatric Consult - Data Date of interview: 10/22/17 Admission source: Self-referred Identifying data: Mr Parekh is a 52 years old single male, father of 3 children, unemployed, homeless seeking detox treatment for alcohol and cannabis Medical History: Significant for seizure disorder since age 20. History of craniotomy in 2008 (metal plate in situ). Patient is unable to provide details about the circumstances that led to neurosurgery. Smokes 6 cigarettes a day. Psychiatric History: Denies history of previous psychiatric treatment. However when he was admitted to inpatient rehab in this facility, he was diagnosed with depression and started on Prozac. Apparently he stopped taking medication once discharged. At present, reports feeling depressed but sleeping well Physical/Sexual Abuse/Trauma History: Denies history of sexual, physical and verbal abuse. Additional Comment: Reports history of a few misdemeanor arrests Mental Status Exam - Mental Status Exam Alert and Oriented to: Time, Place, Person Cognitive Function: Fair Patient Appearance: Well Groomed Mood: Depressed Affect: Appropriate Patient Behavior: Cooperative Speech Pattern: Clear Voice Loudness: Normal Thought Process: Intact, Goal Oriented Thought Disorder: Not Present Hallucinations: Denies Suicidal Ideation: Denies Homicidal Ideation: Denies Insight/Judgement: Poor Sleep: Fair Appetite: Good Muscle strength/Tone: Normal Gait/Station: Normal Psychiatric Findings - Problem List ([place] 1, 2,3) (1) Substance induced mood disorder Current Visit: Yes Status: Acute (2) Alcohol dependence with uncomplicated withdrawal Current Visit: No Status: Acute (3) Cannabis dependence Current Visit: Yes Status: Acute (4) Nicotine dependence Current Visit: No Status: Chronic Qualifiers: Nicotine product type: cigarettes Substance use status: in withdrawal Qualified Code(s): F17.213 - Nicotine dependence, cigarettes, with withdrawal (5) History of traumatic injury of head Current Visit: No Status: Chronic (6) Seizure disorder Current Visit: No Status: Chronic Comment: TANNA RAMIREZ - Initial Treatment Plan Initial Treatment Plan: Continue inpatient detoxification
[2017-10-22 11:45] LABS: VALPROIC ACID DEPAKOTE DEPAKAN 91.6 ug/ml (50-100)
[2017-10-22 12:05] LABS: PHENYTOIN (DILANTIN) < 2.5 ug/ml (10.0-20.0)
[2017-10-22] MEDS: THIAMINE HCL 100 MG TABLET (FP) PO SCH (22:21)
--- NOTE | 2017-10-22 22:41 | EKG ---
Test Reason : Blood Pressure : / mmHG Vent. Rate : 077 BPM Atrial Rate : 077 BPM P-R Int : 122 ms QRS Dur : 086 ms QT Int : 398 ms P-R-T Axes : 052 012 -04 degrees QTc Int : 450 ms NORMAL SINUS RHYTHM NONSPECIFIC ST AND T WAVE ABNORMALITY WHEN COMPARED WITH ECG OF 15-DEC-2016 13:56, NONSPECIFIC T WAVE ABNORMALITY NOW EVIDENT IN LATERAL LEADS Confirmed by ALLEN MATTHEWS MD ([id number]) on 10/22/2017 10:41:01 PM Referred By: Confirmed By:ALLEN MATTHEWS MD
[2017-10-23] MEDS: chlordiazePOXIDE HCL 25 MG CAPSULE PO SCH ×3 (05:33→17:39)
[2017-10-23] MEDS: PHENYTOIN NA EXTENDED 100 MG CAPSULE (FP) PO SCH ×3 (05:33→22:12)
[2017-10-23] MEDS ORDERED: BACITRACIN 0.9 GM PACKET ONE (09:10)
[2017-10-23] MEDS: BACITRACIN 15 GM TUBE TOPICAL OINTMENT TP SCH (10:08)
[2017-10-23] MEDS: NICOTINE 14 MG/24 HOURS TOPICAL PATCH TD SCH (10:09)
[2017-10-23] MEDS: PRENATAL VITAMINS W/ FOLIC ACID TABLET (FP) PO SCH (10:09)
[2017-10-23] MEDS: DIVALPROEX SODIUM 250 MG TABLET E.C. PO SCH ×2 (10:09→22:11)
--- NOTE | 2017-10-23 11:00 | PN ---
[facility] CIWA - CIWA Score Nausea/Vomitin Muscle Tremors: 3 Anxiety: 3 Agitation: 3 Paroxysmal Sweats: 1-Minimal Palms Moist Orientation: 0-Oriented Tacttile Disturbances: 1-Very Mild Itch/Numbness Auditory Disturbances: 1-Very Mild Visual Disturbances: 1-Very Mild Sensitivity Headache: 2-Mild CIWA-Ar Total Score: 18 [facility] Progress Note (SOAP) Subjective: alert,irritable,anxious,interrupted sleep Objective: 10/23/17 10:57 Vital Signs Temperature 97.2 F L 10/23/17 09:41 Pulse Rate 72 10/23/17 09:41 Respiratory Rate 118 H 10/23/17 09:41 Blood Pressure 137/90 10/23/17 09:41 O2 Sat by Pulse Oximetry (%) 10/23/17 10:58 ekg nsr,normal ecg prolong 398/450 Laboratory Last Values WBC 4.4 K/mm3 (4.0-10.0) 10/22/17 07:40 RBC 3.61 M/mm3 (4.00-5.60) L 10/22/17 07:40 Hgb 12.4 GM/dL (11.7-16.9) 10/22/17 07:40 Hct 36.6 % (35.4-49) 10/22/17 07:40 MCV 101.2 fl (80-96) H 10/22/17 07:40 MCH 34.3 pg (25.7-33.7) H 10/22/17 07:40 MCHC 33.9 g/dl (32.0-35.9) 10/22/17 07:40 RDW 12.7 % (11.9-15.9) 10/22/17 07:40 Plt Count 158 K/MM3 (134-434) 10/22/17 07:40 MPV 10.1 fl (7.5-11.1) D 10/22/17 07:40 Sodium 138 mmol/L (136-145) 10/22/17 07:40 Potassium 4.1 mmol/L (3.5-5.1) 10/22/17 07:40 Chloride 99 mmol/L (98-107) 10/22/17 07:40 Carbon Dioxide 29 mmol/L (21-32) 10/22/17 07:40 Anion Gap 10 (8-16) 10/22/17 07:40 BUN 12 mg/dL (7-18) D 10/22/17 07:40 Creatinine 0.7 mg/dL (0.7-1.3) D 10/22/17 07:40 Creat Clearance w eGFR > 60 (>60) 10/22/17 07:40 Random Glucose 91 mg/dL (74-106) 10/22/17 07:40 Calcium 8.5 mg/dL (8.5-10.1) 10/22/17 07:40 Total Bilirubin 0.5 mg/dL (0.2-1.0) 10/22/17 07:40 AST 28 U/L (15-37) D 10/22/17 07:40 ALT 30 U/L (12-78) D 10/22/17 07:40 Alkaline Phosphatase 242 U/L (45-117) H D 10/22/17 07:40 Total Protein 6.9 g/dl (6.4-8.2) 10/22/17 07:40 Albumin 3.4 g/dl (3.4-5.0) 10/22/17 07:40 Urine Color Ltyellow 10/22/17 08:15 Urine Appearance Clear 10/22/17 08:15 Urine pH 8.0 (5.0-8.0) 10/22/17 08:15 Ur Specific [place] 1.015 (1.001-1.035) 10/22/17 08:15 Urine Protein Negative (NEGATIVE) 10/22/17 08:15 Urine Glucose (UA) Negative (NEGATIVE) 10/22/17 08:15 Urine Ketones Negative (NEGATIVE) 10/22/17 08:15 Urine Blood Negative (NEGATIVE) 10/22/17 08:15 Urine Nitrite Negative (NEGATIVE) 10/22/17 08:15 Urine Bilirubin Negative (<2.0 mg/dL) 10/22/17 08:15 Urine Urobilinogen 2.0 mg/dL (0.2-1.0) 10/22/17 08:15 Ur Leukocyte Esterase Negative (NEGATIVE) 10/22/17 08:15 Phenytoin < 2.5 ug/ml (10.0-20.0) L D 10/22/17 07:40 Valproic Acid 91.6 ug/ml (50-100) 10/22/17 07:40 RPR Titer Nonreactive (NONREACTIVE) 10/22/17 07:40 Assessment: 10/23/17 11:16 withdrawal symptom Plan: continue detox,dilantin 300 mgs po then tid,repeat dilantin level in am
[2017-10-23] MEDS ORDERED: PHENYTOIN NA EXTENDED 100 MG CAPSULE (FP) PO ONE (11:45)
[2017-10-23] MEDS: chlordiazePOXIDE 5 MG CAPSULE PO SCH (22:12)
[2017-10-23] MEDS: THIAMINE HCL 100 MG TABLET (FP) PO SCH (22:12)
[2017-10-24] MEDS: chlordiazePOXIDE 5 MG CAPSULE PO SCH ×3 (05:16→17:41)
[2017-10-24] MEDS: PHENYTOIN NA EXTENDED 100 MG CAPSULE (FP) PO SCH ×3 (05:16→22:13)
[2017-10-24] MEDS ORDERED: BACITRACIN 0.9 GM PACKET ONE (08:56)
[2017-10-24] MEDS: PRENATAL VITAMINS W/ FOLIC ACID TABLET (FP) PO SCH (10:12)
[2017-10-24] MEDS: DIVALPROEX SODIUM 250 MG TABLET E.C. PO SCH ×2 (10:12→22:13)
[2017-10-24] MEDS: BACITRACIN 15 GM TUBE TOPICAL OINTMENT TP SCH (10:13)
[2017-10-24] MEDS: NICOTINE 14 MG/24 HOURS TOPICAL PATCH TD SCH (10:14)
--- NOTE | 2017-10-24 10:28 | PN ---
S Progress Note (SOAP) Subjective: alert,irritable,interrupted sleep Objective: 10/24/17 10:26 Vital Signs Temperature 98.2 F 10/24/17 09:17 Pulse Rate 83 10/24/17 09:17 Respiratory Rate 18 10/24/17 09:17 Blood Pressure 116/70 10/24/17 09:17 O2 Sat by Pulse Oximetry (%) Assessment: 10/24/17 10:27 withdrawal symptom Plan: continue detox,discharge in am
--- NOTE | 2017-10-24 10:38 | PN ---
S Progress Note (SOAP) Subjective: alert,irritable,interrupted sleep Objective: 10/24/17 10:36 Vital Signs Temperature 98.2 F 10/24/17 09:17 Pulse Rate 83 10/24/17 09:17 Respiratory Rate 18 10/24/17 09:17 Blood Pressure 116/70 10/24/17 09:17 O2 Sat by Pulse Oximetry (%) Assessment: 10/24/17 10:37 withdrawal symptom Plan: continue detox,dilantin level pending,continue detox,discharge in am
[2017-10-24] MEDS: chlordiazePOXIDE HCL 10 MG CAPSULE PO SCH (22:13)
[2017-10-24] MEDS: THIAMINE HCL 100 MG TABLET (FP) PO SCH (22:13)
[2017-10-25] MEDS: PHENYTOIN NA EXTENDED 100 MG CAPSULE (FP) PO SCH ×2 (05:13→13:22)
[2017-10-25] MEDS: chlordiazePOXIDE HCL 10 MG CAPSULE PO SCH ×2 (05:13→10:56)
[2017-10-25] MEDS ORDERED: PHENYTOIN NA EXTENDED 100 MG CAPSULE (FP) PO ONE (09:00)
--- NOTE | 2017-10-25 09:44 | PN ---
S Progress Note (SOAP) Subjective: alert,no complaint Objective: 10/25/17 09:42 Vital Signs Temperature 98.1 F 10/25/17 09:39 Pulse Rate 86 10/25/17 09:39 Respiratory Rate 16 10/25/17 09:39 Blood Pressure 111/65 10/25/17 09:39 O2 Sat by Pulse Oximetry (%) Assessment: 10/25/17 09:43 detox completed,no withdrawal symptom Plan: discharge today,follow up with after care program as arrangement
--- NOTE | 2017-10-25 09:50 | DS ---
[facility] Detox Discharge Summary Admission Date: 10/21/17 Discharge Date: 10/25/17 - History Present History: Alcohol Dependence, Cannabis Dependence Additional Comments: follow up with after care program as arrangement Pertinent Past History: seizure disorder history of traumatic brain injury - Physical Exam Results Vital Signs: Vital Signs Temperature 98.1 F 10/25/17 09:39 Pulse Rate 86 10/25/17 09:39 Respiratory Rate 16 10/25/17 09:39 Blood Pressure 111/65 10/25/17 09:39 O2 Sat by Pulse Oximetry (%) Pertinent Admission Physical Exam Findings: withdrawal signs and symptom Vital Signs Temperature 98.1 F 10/25/17 09:39 Pulse Rate 86 10/25/17 09:39 Respiratory Rate 16 10/25/17 09:39 Blood Pressure 111/65 10/25/17 09:39 O2 Sat by Pulse Oximetry (%) Laboratory Last Values WBC 4.4 K/mm3 (4.0-10.0) 10/22/17 07:40 RBC 3.61 M/mm3 (4.00-5.60) L 10/22/17 07:40 Hgb 12.4 GM/dL (11.7-16.9) 10/22/17 07:40 Hct 36.6 % (35.4-49) 10/22/17 07:40 MCV 101.2 fl (80-96) H 10/22/17 07:40 MCH 34.3 pg (25.7-33.7) H 10/22/17 07:40 MCHC 33.9 g/dl (32.0-35.9) 10/22/17 07:40 RDW 12.7 % (11.9-15.9) 10/22/17 07:40 Plt Count 158 K/MM3 (134-434) 10/22/17 07:40 MPV 10.1 fl (7.5-11.1) D 10/22/17 07:40 Sodium 138 mmol/L (136-145) 10/22/17 07:40 Potassium 4.1 mmol/L (3.5-5.1) 10/22/17 07:40 Chloride 99 mmol/L (98-107) 10/22/17 07:40 Carbon Dioxide 29 mmol/L (21-32) 10/22/17 07:40 Anion Gap 10 (8-16) 10/22/17 07:40 BUN 12 mg/dL (7-18) D 10/22/17 07:40 Creatinine 0.7 mg/dL (0.7-1.3) D 10/22/17 07:40 Creat Clearance w eGFR > 60 (>60) 10/22/17 07:40 Random Glucose 91 mg/dL (74-106) 10/22/17 07:40 Calcium 8.5 mg/dL (8.5-10.1) 10/22/17 07:40 Total Bilirubin 0.5 mg/dL (0.2-1.0) 10/22/17 07:40 AST 28 U/L (15-37) D 10/22/17 07:40 ALT 30 U/L (12-78) D 10/22/17 07:40 Alkaline Phosphatase 242 U/L (45-117) H D 10/22/17 07:40 Total Protein 6.9 g/dl (6.4-8.2) 10/22/17 07:40 Albumin 3.4 g/dl (3.4-5.0) 10/22/17 07:40 Urine Color Ltyellow 10/22/17 08:15 Urine Appearance Clear 10/22/17 08:15 Urine pH 8.0 (5.0-8.0) 10/22/17 08:15 Ur Specific [place] 1.015 (1.001-1.035) 10/22/17 08:15 Urine Protein Negative (NEGATIVE) 10/22/17 08:15 Urine Glucose (UA) Negative (NEGATIVE) 10/22/17 08:15 Urine Ketones Negative (NEGATIVE) 10/22/17 08:15 Urine Blood Negative (NEGATIVE) 10/22/17 08:15 Urine Nitrite Negative (NEGATIVE) 10/22/17 08:15 Urine Bilirubin Negative (<2.0 mg/dL) 10/22/17 08:15 Urine Urobilinogen 2.0 mg/dL (0.2-1.0) 10/22/17 08:15 Ur Leukocyte Esterase Negative (NEGATIVE) 10/22/17 08:15 Phenytoin 3.6 ug/ml (10.0-20.0) L D 10/24/17 07:30 Valproic Acid 91.6 ug/ml (50-100) 10/22/17 07:40 RPR Titer Nonreactive (NONREACTIVE) 10/22/17 07:40 - Treatment Hospital Course: Detox Protocol Followed, Detoxed Safely, Responded well, Discharged Condition Good - Medication Discharge Medications: Ambulatory Orders Divalproex Sodium [Depakote] 1,000 mg PO BID #60 mg 10/31/16 Phenytoin Na Extended [Dilantin -] 100 mg PO TID #90 mg 10/31/16 - Diagnosis (1) Alcohol dependence with uncomplicated withdrawal Current Visit: No Status: Acute (2) Nicotine dependence Current Visit: No Status: Chronic Qualifiers: Nicotine product type: cigarettes Substance use status: in withdrawal Qualified Code(s): F17.213 - Nicotine dependence, cigarettes, with withdrawal (3) Cannabis dependence Current Visit: Yes Status: Acute (4) Seizure disorder Current Visit: No Status: Chronic - AMA Did Patient Leave Against Medical Advice: No
[2017-10-25] MEDS: DIVALPROEX SODIUM 250 MG TABLET E.C. PO SCH (10:56)
[2017-10-25] MEDS: PRENATAL VITAMINS W/ FOLIC ACID TABLET (FP) PO SCH (10:56)
[2017-10-25] MEDS: BACITRACIN 15 GM TUBE TOPICAL OINTMENT TP SCH (10:57)
[2017-10-25] MEDS: NICOTINE 14 MG/24 HOURS TOPICAL PATCH TD SCH (13:22)
[2017-10-25 14:42] VITALS: BP 138/77; PULSE 93; TEMP 97.9
== END 2017-10-25 15:50 | disposition other institution (70) | DRG 775 ==
LOC: YASAS 20:24 → Y6N 22:22
PROVIDERS: ADMIT Surgery; ATTEND Surgery
PROC: HZ2ZZZZ Detoxification Services for Substance Abuse Treatment (ICD-10-PCS; principal; 2017-10-21)
DX: F10.230 Alcohol dependence with withdrawal, uncomplicated (principal); F12.20 Cannabis dependence, uncomplicated; F17.213 Nicotine dependence, cigarettes, with withdrawal; F19.24 Other psychoactive substance dependence with psychoactive substance-induced mood disorder; G40.909 Epilepsy, unspecified, not intractable, without status epilepticus; Z87.820 Personal history of traumatic brain injury
CPT/HCPCS: 36415; 80053; 80164; 80185; 81003; 85027; 86593; 93005; 93010

== ENCOUNTER 2017-10-25 16:01 | Inpatient (IN) | payer OTHER ==
[2017-10-25] MEDS ORDERED: MAG HYDROX/AL HYDROX/SIMETH 30 ML UNIT-DOSE CUP PO PRN (18:20)
[2017-10-25] MEDS ORDERED: IBUPROFEN 400 MG TABLET (FP) PO PRN (18:20)
[2017-10-25] MEDS ORDERED: LOPERAMIDE HCL 2 MG CAPSULE PO PRN (18:20)
[2017-10-25] MEDS ORDERED: MAGNESIUM HYDROX 2400MG/30ML ORAL SUSPENSION 30 ML CUP PO PRN (18:20)
[2017-10-25] MEDS ORDERED: P-EPHED 60MG/TRIPROLIDI 2.5MG TABLET PO PRN (18:20)
[2017-10-25] MEDS ORDERED: NICOTINE POLACRILEX 2 MG GUM BUC PRN (18:20)
[2017-10-25] MEDS ORDERED: MENTHOL/PHENOL 1 EACH UD MM PRN (18:20)
[2017-10-25] MEDS ORDERED: ACETAMINOPHEN 325 MG TABLET (FP) PO PRN (18:20)
[2017-10-25] MEDS ORDERED: guaiFENesin/D-METHORPHAN HB 10 ML UNIT-DOSE CUPS PO PRN (18:20)
[2017-10-25] MEDS ORDERED: hydrOXYzine PAMOATE 50 MG CAPSULE (FP) PO PRN (18:20)
[2017-10-25] MEDS ORDERED: MAGNESIUM CITRATE 300 ML BOTTLE PO PRN (18:20)
[2017-10-25] MEDS: DIVALPROEX SODIUM 500 MG TABLET E.C. PO SCH (21:10)
[2017-10-25] MEDS: THIAMINE HCL 100 MG TABLET (FP) PO SCH (21:10)
[2017-10-25] MEDS: PHENYTOIN NA EXTENDED 100 MG CAPSULE (FP) PO SCH (21:10)
[2017-10-25] MEDS ORDERED: MELATONIN 5 MG TABLETS PO PRN (22:00)
[2017-10-26] MEDS: PHENYTOIN NA EXTENDED 100 MG CAPSULE (FP) PO SCH ×3 (06:55→21:25)
[2017-10-26] MEDS: PRENATAL VITAMINS W/ FOLIC ACID TABLET (FP) PO SCH (09:53)
[2017-10-26] MEDS: DIVALPROEX SODIUM 500 MG TABLET E.C. PO SCH ×2 (09:53→21:25)
[2017-10-26] MEDS ORDERED: NICOTINE 21 MG/24 HOURS TOPICAL PATCH TD SCH (10:00)
--- NOTE | 2017-10-26 10:17 | HP ---
Psychiatrist Admission - Data Date of interview: 10/26/17 Identifying data: This is the third [facility] admission for this 52 years old male, father of 3 children, unemployed with nource of income, homeless Medical History: Significant for seizure disorder since age 20. History of craniotomy in 2008 (metal plate in situ). Patient is unable to provide details about the circumstances that led to neurosurgery. Smokes 6 cigarettes a day. Psychiatric History: Denies history of previous psychiatric treatment. However when he was admitted to inpatient rehab in this facility in September 2016, he was diagnosed with depression and started on Prozac. Apparently he stopped taking medication once discharged. At present, reports feeling depressed but sleeping well Physical/Sexual Abuse/Trauma History: Denies history of sexual, physical and verbal abuse. Additional Comment: Reports history of a few misdemeanor arrests Vital Signs: Vital Signs - 24 hr 10/25/17 10/26/17 10/26/17 16:17 00:30 03:30 Temperature 98.2 F Pulse Rate 87 Respiratory 16 18 18 Rate Blood Pressure 110/75 10/26/17 07:13 Temperature 97.8 F Pulse Rate 87 Respiratory 18 Rate Blood Pressure 119/86 Allergies/Adverse Reactions: Allergies Allergy/AdvReac Type Severity Reaction Status Date / Time Fish Containing Products Allergy Severe Hives Verified 10/21/17 22:26 No Known Drug Allergies Allergy Verified 10/21/17 22:26 Date of last physical exam: 10/21/17 Concur with the findings of this exam: Yes - Substance Abuse/Tx History Hx Alcohol Use: Yes Hx Substance Use: Yes Substance Use Type: Alcohol (Started drinking alcohol at age 9, consumes 6x 24oz daily. Last drank on 10/21/17), Marijuana (Started smoking marijuana at age 19, consumes $5 worth daily. Last smoked on 10/21/17) Hx Substance Use Treatment: Yes (4 previous inpt detox & 2 inpt rehab @ [facility]) Mental Status Exam - Mental Status Exam Alert and Oriented to: Time, Place, Person Cognitive Function: Fair Patient Appearance: Well Groomed Mood: Hopeful, Euthymic Affect: Appropriate Patient Behavior: Cooperative Speech Pattern: Clear Voice Loudness: Normal Thought Process: Intact Thought Disorder: Not Present Hallucinations: Denies Suicidal Ideation: Denies Homicidal Ideation: Denies Insight/Judgement: Fair Sleep: Well Appetite: Good Muscle strength/Tone: Normal Gait/Station: Normal Psychiatric Findings - Problem List ([place] 1, 2,3) (1) Alcohol dependence Current Visit: Yes Status: Acute (2) Cannabis dependence Current Visit: No Status: Acute (3) Nicotine dependence Current Visit: No Status: Chronic Qualifiers: Nicotine product type: cigarettes Substance use status: in withdrawal Qualified Code(s): F17.213 - Nicotine dependence, cigarettes, with withdrawal (4) History of traumatic injury of head Current Visit: No Status: Chronic (5) Seizure disorder Current Visit: No Status: Chronic Comment: TANNA RAMIREZ - Initial Treatment Plan Initial Treatment Plan: Monitor progress
[2017-10-26] MEDS: NICOTINE 21 MG/24 HOURS TOPICAL PATCH TD SCH (14:35)
[2017-10-26] MEDS: THIAMINE HCL 100 MG TABLET (FP) PO SCH (21:25)
[2017-10-27] MEDS: PHENYTOIN NA EXTENDED 100 MG CAPSULE (FP) PO SCH ×3 (06:10→21:07)
[2017-10-27] MEDS: NICOTINE 21 MG/24 HOURS TOPICAL PATCH TD SCH (09:51)
[2017-10-27] MEDS: DIVALPROEX SODIUM 500 MG TABLET E.C. PO SCH ×2 (09:51→21:07)
[2017-10-27] MEDS: PRENATAL VITAMINS W/ FOLIC ACID TABLET (FP) PO SCH (09:51)
[2017-10-27] MEDS: THIAMINE HCL 100 MG TABLET (FP) PO SCH (21:07)
[2017-10-28] MEDS: PHENYTOIN NA EXTENDED 100 MG CAPSULE (FP) PO SCH ×3 (06:26→21:09)
[2017-10-28] MEDS: DIVALPROEX SODIUM 500 MG TABLET E.C. PO SCH ×2 (09:46→21:09)
[2017-10-28] MEDS: PRENATAL VITAMINS W/ FOLIC ACID TABLET (FP) PO SCH (09:46)
[2017-10-28] MEDS: NICOTINE 21 MG/24 HOURS TOPICAL PATCH TD SCH (09:47)
[2017-10-28] MEDS ORDERED: PHENYTOIN NA EXTENDED 100 MG CAPSULE (FP) PO ONE (13:54)
--- NOTE | 2017-10-28 13:57 | PN ---
[facility] Progress Note Note: Laboratory Last Values Phenytoin 6.2 ug/ml (10.0-20.0) L D 10/27/17 08:30 dilantin 300 mgs po now then 100 mgs po tid seizure precaution dilantin level repeat in am
[2017-10-28] MEDS: THIAMINE HCL 100 MG TABLET (FP) PO SCH (21:09)
[2017-10-29] MEDS: PHENYTOIN NA EXTENDED 100 MG CAPSULE (FP) PO SCH ×3 (06:33→21:09)
[2017-10-29] MEDS: NICOTINE 21 MG/24 HOURS TOPICAL PATCH TD SCH (09:52)
[2017-10-29] MEDS: PRENATAL VITAMINS W/ FOLIC ACID TABLET (FP) PO SCH (09:52)
[2017-10-29] MEDS: DIVALPROEX SODIUM 500 MG TABLET E.C. PO SCH ×2 (09:52→21:09)
[2017-10-29] MEDS ORDERED: PHENYTOIN NA EXTENDED 100 MG CAPSULE (FP) PO ONE (14:10)
--- NOTE | 2017-10-29 14:15 | PN ---
[facility] Progress Note Note: Laboratory Results - last 24 hr 10/29/17 07:50 Phenytoin 6.9 L D to give dilantin 300 mg po now and continue dilantin 100 mgs po tid,repeat dilantin on 10/31/17
[2017-10-29] MEDS: THIAMINE HCL 100 MG TABLET (FP) PO SCH (21:09)
[2017-10-30] MEDS: PHENYTOIN NA EXTENDED 100 MG CAPSULE (FP) PO SCH ×3 (06:33→21:12)
[2017-10-30] MEDS: PRENATAL VITAMINS W/ FOLIC ACID TABLET (FP) PO SCH (09:48)
[2017-10-30] MEDS: NICOTINE 21 MG/24 HOURS TOPICAL PATCH TD SCH (09:48)
[2017-10-30] MEDS: DIVALPROEX SODIUM 500 MG TABLET E.C. PO SCH ×2 (09:48→21:12)
[2017-10-30] MEDS: THIAMINE HCL 100 MG TABLET (FP) PO SCH (21:12)
[2017-10-31] MEDS: PHENYTOIN NA EXTENDED 100 MG CAPSULE (FP) PO SCH ×3 (06:38→21:15)
[2017-10-31] MEDS: PRENATAL VITAMINS W/ FOLIC ACID TABLET (FP) PO SCH (09:57)
[2017-10-31] MEDS: DIVALPROEX SODIUM 500 MG TABLET E.C. PO SCH ×2 (09:57→21:15)
[2017-10-31] MEDS: NICOTINE 21 MG/24 HOURS TOPICAL PATCH TD SCH (09:57)
[2017-10-31] MEDS ORDERED: PHENYTOIN NA EXTENDED 100 MG CAPSULE (FP) PO ONE (12:04)
--- NOTE | 2017-10-31 12:10 | PN ---
[facility] Progress Note Note: Vital Signs Temperature 98.4 F 10/31/17 06:37 Pulse Rate 87 10/31/17 06:37 Respiratory Rate 18 10/31/17 06:37 Blood Pressure 94/67 10/31/17 06:37 O2 Sat by Pulse Oximetry (%) Laboratory Results - last 24 hr 10/31/17 08:30 Phenytoin 6.9 L dilantin 300 mgs po now then 100 mgs po tid repeat dilantin level on 11/02/17
[2017-10-31] MEDS: THIAMINE HCL 100 MG TABLET (FP) PO SCH (21:15)
[2017-11-01] MEDS: PHENYTOIN NA EXTENDED 100 MG CAPSULE (FP) PO SCH ×3 (06:12→21:08)
[2017-11-01] MEDS: NICOTINE 21 MG/24 HOURS TOPICAL PATCH TD SCH (10:03)
[2017-11-01] MEDS: PRENATAL VITAMINS W/ FOLIC ACID TABLET (FP) PO SCH (10:03)
[2017-11-01] MEDS: DIVALPROEX SODIUM 500 MG TABLET E.C. PO SCH ×2 (10:03→21:08)
[2017-11-01] MEDS: THIAMINE HCL 100 MG TABLET (FP) PO SCH (21:08)
[2017-11-02] MEDS: PHENYTOIN NA EXTENDED 100 MG CAPSULE (FP) PO SCH ×3 (09:35→21:07)
[2017-11-02] MEDS: NICOTINE 21 MG/24 HOURS TOPICAL PATCH TD SCH (09:46)
[2017-11-02] MEDS: DIVALPROEX SODIUM 500 MG TABLET E.C. PO SCH ×2 (09:46→21:07)
[2017-11-02] MEDS: PRENATAL VITAMINS W/ FOLIC ACID TABLET (FP) PO SCH (09:46)
[2017-11-02] MEDS: THIAMINE HCL 100 MG TABLET (FP) PO SCH (21:07)
[2017-11-03] MEDS: PHENYTOIN NA EXTENDED 100 MG CAPSULE (FP) PO SCH ×3 (06:34→21:11)
[2017-11-03] MEDS: NICOTINE 21 MG/24 HOURS TOPICAL PATCH TD SCH (09:51)
[2017-11-03] MEDS: PRENATAL VITAMINS W/ FOLIC ACID TABLET (FP) PO SCH (09:51)
[2017-11-03] MEDS: DIVALPROEX SODIUM 500 MG TABLET E.C. PO SCH ×2 (09:51→21:11)
--- NOTE | 2017-11-03 13:20 | PN ---
[facility] Progress Note Note: Phenytoin level 8.6. Slowly increasing to normal range. Will continue same dose. Repeat level in 5 days.
[2017-11-03] MEDS: THIAMINE HCL 100 MG TABLET (FP) PO SCH (21:11)
[2017-11-04] MEDS: PHENYTOIN NA EXTENDED 100 MG CAPSULE (FP) PO SCH ×3 (06:10→21:23)
[2017-11-04] MEDS: DIVALPROEX SODIUM 500 MG TABLET E.C. PO SCH ×2 (09:51→21:23)
[2017-11-04] MEDS: PRENATAL VITAMINS W/ FOLIC ACID TABLET (FP) PO SCH (09:51)
[2017-11-04] MEDS: NICOTINE 21 MG/24 HOURS TOPICAL PATCH TD SCH (09:52)
[2017-11-04] MEDS ORDERED: NICOTINE 21 MG/24 HOURS TOPICAL PATCH TD ONE (14:15)
[2017-11-04] MEDS: THIAMINE HCL 100 MG TABLET (FP) PO SCH (21:24)
[2017-11-05] MEDS: PHENYTOIN NA EXTENDED 100 MG CAPSULE (FP) PO SCH ×3 (06:56→21:13)
[2017-11-05] MEDS: DIVALPROEX SODIUM 500 MG TABLET E.C. PO SCH ×2 (09:54→21:13)
[2017-11-05] MEDS: NICOTINE 21 MG/24 HOURS TOPICAL PATCH TD SCH (09:54)
[2017-11-05] MEDS: PRENATAL VITAMINS W/ FOLIC ACID TABLET (FP) PO SCH (09:54)
[2017-11-05] MEDS: THIAMINE HCL 100 MG TABLET (FP) PO SCH (21:13)
[2017-11-06] MEDS: PHENYTOIN NA EXTENDED 100 MG CAPSULE (FP) PO SCH ×3 (06:26→21:14)
[2017-11-06] MEDS: PRENATAL VITAMINS W/ FOLIC ACID TABLET (FP) PO SCH (10:09)
[2017-11-06] MEDS: DIVALPROEX SODIUM 500 MG TABLET E.C. PO SCH ×2 (10:09→21:14)
[2017-11-06] MEDS: NICOTINE 21 MG/24 HOURS TOPICAL PATCH TD SCH (10:09)
[2017-11-06] MEDS: THIAMINE HCL 100 MG TABLET (FP) PO SCH (21:14)
[2017-11-07] MEDS: PHENYTOIN NA EXTENDED 100 MG CAPSULE (FP) PO SCH ×3 (06:22→21:13)
[2017-11-07] MEDS: NICOTINE 21 MG/24 HOURS TOPICAL PATCH TD SCH (10:24)
[2017-11-07] MEDS: DIVALPROEX SODIUM 500 MG TABLET E.C. PO SCH ×2 (10:24→21:13)
[2017-11-07] MEDS: PRENATAL VITAMINS W/ FOLIC ACID TABLET (FP) PO SCH (10:24)
[2017-11-07] MEDS: THIAMINE HCL 100 MG TABLET (FP) PO SCH (21:13)
[2017-11-08] MEDS: PHENYTOIN NA EXTENDED 100 MG CAPSULE (FP) PO SCH ×3 (06:26→21:10)
[2017-11-08] MEDS: DIVALPROEX SODIUM 500 MG TABLET E.C. PO SCH ×2 (10:17→21:10)
[2017-11-08] MEDS: PRENATAL VITAMINS W/ FOLIC ACID TABLET (FP) PO SCH (10:17)
[2017-11-08] MEDS: NICOTINE 21 MG/24 HOURS TOPICAL PATCH TD SCH (10:17)
--- NOTE | 2017-11-08 12:03 | PN ---
S Progress Note Note: Dilantin level decreased from 8.6 to 6.3. Medication given and taken as ordered. Will repeat level for tomorrow morning. Continue to monitor clinically.
[2017-11-08] MEDS: THIAMINE HCL 100 MG TABLET (FP) PO SCH (21:10)
[2017-11-09] MEDS: PHENYTOIN NA EXTENDED 100 MG CAPSULE (FP) PO SCH ×3 (06:39→21:23)
[2017-11-09] MEDS: NICOTINE 21 MG/24 HOURS TOPICAL PATCH TD SCH (09:58)
[2017-11-09] MEDS: DIVALPROEX SODIUM 500 MG TABLET E.C. PO SCH ×2 (09:58→21:23)
[2017-11-09] MEDS: PRENATAL VITAMINS W/ FOLIC ACID TABLET (FP) PO SCH (09:58)
[2017-11-09] MEDS: THIAMINE HCL 100 MG TABLET (FP) PO SCH (21:23)
[2017-11-10] MEDS: PHENYTOIN NA EXTENDED 100 MG CAPSULE (FP) PO SCH ×3 (06:18→21:20)
[2017-11-10] MEDS: DIVALPROEX SODIUM 500 MG TABLET E.C. PO SCH ×2 (09:56→21:20)
[2017-11-10] MEDS: PRENATAL VITAMINS W/ FOLIC ACID TABLET (FP) PO SCH (09:56)
[2017-11-10] MEDS: NICOTINE 21 MG/24 HOURS TOPICAL PATCH TD SCH (09:57)
[2017-11-10] MEDS: THIAMINE HCL 100 MG TABLET (FP) PO SCH (21:20)
[2017-11-11] MEDS: PHENYTOIN NA EXTENDED 100 MG CAPSULE (FP) PO SCH ×2 (05:32→21:07)
[2017-11-11] MEDS: DIVALPROEX SODIUM 500 MG TABLET E.C. PO SCH ×2 (11:16→21:07)
[2017-11-11] MEDS: NICOTINE 21 MG/24 HOURS TOPICAL PATCH TD SCH (11:16)
[2017-11-11] MEDS: PRENATAL VITAMINS W/ FOLIC ACID TABLET (FP) PO SCH (11:16)
--- NOTE | 2017-11-11 13:08 | PN ---
[facility] Progress Note Note: Dilantin level 4.4 with corresponding dose 100mg TID. Dose changed to 200mg BID. Repeat level in 1 week
[2017-11-11] MEDS: THIAMINE HCL 100 MG TABLET (FP) PO SCH (21:07)
[2017-11-12] MEDS: PRENATAL VITAMINS W/ FOLIC ACID TABLET (FP) PO SCH (10:25)
[2017-11-12] MEDS: DIVALPROEX SODIUM 500 MG TABLET E.C. PO SCH (10:25)
[2017-11-12] MEDS: NICOTINE 21 MG/24 HOURS TOPICAL PATCH TD SCH (10:25)
[2017-11-12] MEDS: PHENYTOIN NA EXTENDED 100 MG CAPSULE (FP) PO SCH (10:25)
[2017-11-13] MEDS: PHENYTOIN NA EXTENDED 100 MG CAPSULE (FP) PO SCH ×3 (00:20→21:08)
[2017-11-13] MEDS: THIAMINE HCL 100 MG TABLET (FP) PO SCH ×2 (00:20→21:08)
[2017-11-13] MEDS: DIVALPROEX SODIUM 500 MG TABLET E.C. PO SCH ×3 (00:20→21:08)
[2017-11-13] MEDS: PRENATAL VITAMINS W/ FOLIC ACID TABLET (FP) PO SCH (09:50)
[2017-11-13] MEDS: NICOTINE 21 MG/24 HOURS TOPICAL PATCH TD SCH (09:51)
--- NOTE | 2017-11-13 13:30 | PN ---
Psychiatric Progress Note Vital Signs: Vital Signs Period Temp Pulse Resp BP Sys/Henderson Pulse Ox Last 24 Hr 98.7 F 84 18-18 106/73 Date of Session: 11/13/17 Chief Complaint:: Discharge Note HPI: Patient addressing Alcohol and Cannabid Dependence comorbid with Nicotine Dependence ROS: H/O Head injury, Seizure Disorder Current Medications: Active Medications Generic Name Dose Route Start Last Admin Trade Name Freq PRN Reason Stop Dose Admin Acetaminophen 650 mg 10/25/17 18:20 Tylenol - PO Q4H PRN FEVER Al Hydroxide/Mg Hydroxide 30 ml 10/25/17 18:20 Mylanta Oral Suspension - PO Q6H PRN DYSPEPSIA Divalproex Sodium 1,000 mg 10/25/17 22:00 11/13/17 09:50 Depakote - PO 1,000 mg BID TEO Administration Eucalyptus/Menthol/Phenol/Sorbitol 1 each 10/25/17 18:20 Cepastat Lozenge - MM Q4H PRN SORE THROAT Guaifenesin 10 ml 10/25/17 18:20 Robitussin Dm - PO Q6H PRN COUGH Hydroxyzine Pamoate 50 mg 10/25/17 18:20 Vistaril - PO Q4H PRN AGITATION Ibuprofen 400 mg 10/25/17 18:20 Motrin - PO Q6H PRN Pain Level 4-6 Loperamide HCl 4 mg 10/25/17 18:20 Imodium - PO Q6H PRN DIARRHEA Magnesium Citrate 300 ml 10/25/17 18:20 Citroma - PO Q48H PRN CONSTIPATION Magnesium Hydroxide 30 ml 10/25/17 18:20 Milk Of Magnesia - PO DAILY PRN CONSTIPATION Melatonin 5 mg 10/25/17 22:00 Melatonin PO HS PRN INSOMNIA Nicotine 21 mg 10/26/17 14:45 11/13/17 09:51 Nicoderm Patch - TD 21 mg DAILY TEO Administration Nicotine Polacrilex 2 mg 10/25/17 18:20 Nicorette Gum - BUC Q2H PRN NICOTINE REPLACEMENT RX Phenytoin Sodium 200 mg 11/11/17 22:00 11/13/17 09:50 Dilantin - PO 200 mg BID TEO Administration Multivit/Folic Acid/Iron 1 tab 10/26/17 10:00 11/13/17 09:50 Vitamins (Sjr) - PO 1 tab DAILY TEO Administration Pseudoephedrine/Triprolidine 1 combo 10/25/17 18:20 Actifed - PO TID PRN NASAL CONGESTION Thiamine HCl 100 mg 10/25/17 22:00 11/13/17 00:20 Vitamin B1 - PO Not Given HS TEO Current Side Effect: No Lab tests ordered: Yes Lab tests reviewed: Yes Provider note:: Patient will complete this program on 11/14/17. 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 He is stable for discharge on 11/14/17 Total face to face time:: 35 Mental Status Exam - Mental Status Exam Alert and Oriented to: Time, Place, Person Cognitive Function: Fair Patient Appearance: Well Groomed Mood: Hopeful, Euthymic Affect: Appropriate Patient Behavior: Cooperative Speech Pattern: Clear Voice Loudness: Normal Thought Process: Intact, Goal Oriented Thought Disorder: Not Present Hallucinations: Denies Suicidal Ideation: Denies Homicidal Ideation: Denies Insight/Judgement: Fair Sleep: Well Appetite: Good Muscle strength/Tone: Normal Gait/Station: Normal Psychiatric Treatment Plan - Problem List (1) Alcohol dependence Current Visit: Yes (2) Cannabis dependence Current Visit: No (3) Nicotine dependence Current Visit: No Qualifiers: Nicotine product type: cigarettes Substance use status: in withdrawal Qualified Code(s): F17.213 - Nicotine dependence, cigarettes, with withdrawal (4) History of traumatic injury of head Current Visit: No (5) Seizure disorder Current Visit: No Comment: TANNA RAMIREZ Initial treatment plan: Patient will be discharged tomorrow and referrred to [facility] for [facility] residential treatment
--- NOTE | 2017-11-14 09:49 | PN ---
Psychiatric Progress Note Vital Signs: Vital Signs Period Temp Pulse Resp BP Sys/Henderson Pulse Ox Last 24 Hr 98.3 F 87 16-18 107/72 Date of Session: 11/14/17 Chief Complaint:: Discharge Note HPI: Patient addressing Alcohol and Cannabid Dependence comorbid with Nicotine Dependence ROS: H/O Head injury, Seizure Disorder Current Medications: Active Medications Generic Name Dose Route Start Last Admin Trade Name Freq PRN Reason Stop Dose Admin Acetaminophen 650 mg 10/25/17 18:20 Tylenol - PO Q4H PRN FEVER Al Hydroxide/Mg Hydroxide 30 ml 10/25/17 18:20 Mylanta Oral Suspension - PO Q6H PRN DYSPEPSIA Divalproex Sodium 1,000 mg 10/25/17 22:00 11/13/17 21:08 Depakote - PO 1,000 mg BID TEO Administration Eucalyptus/Menthol/Phenol/Sorbitol 1 each 10/25/17 18:20 Cepastat Lozenge - MM Q4H PRN SORE THROAT Guaifenesin 10 ml 10/25/17 18:20 Robitussin Dm - PO Q6H PRN COUGH Hydroxyzine Pamoate 50 mg 10/25/17 18:20 Vistaril - PO Q4H PRN AGITATION Ibuprofen 400 mg 10/25/17 18:20 Motrin - PO Q6H PRN Pain Level 4-6 Loperamide HCl 4 mg 10/25/17 18:20 Imodium - PO Q6H PRN DIARRHEA Magnesium Citrate 300 ml 10/25/17 18:20 Citroma - PO Q48H PRN CONSTIPATION Magnesium Hydroxide 30 ml 10/25/17 18:20 Milk Of Magnesia - PO DAILY PRN CONSTIPATION Melatonin 5 mg 10/25/17 22:00 Melatonin PO HS PRN INSOMNIA Nicotine 21 mg 10/26/17 14:45 11/13/17 09:51 Nicoderm Patch - TD 21 mg DAILY TEO Administration Nicotine Polacrilex 2 mg 10/25/17 18:20 Nicorette Gum - BUC Q2H PRN NICOTINE REPLACEMENT RX Phenytoin Sodium 200 mg 11/11/17 22:00 11/13/17 21:08 Dilantin - PO 200 mg BID TEO Administration Multivit/Folic Acid/Iron 1 tab 10/26/17 10:00 11/13/17 09:50 Vitamins (Sjr) - PO 1 tab DAILY TEO Administration Pseudoephedrine/Triprolidine 1 combo 10/25/17 18:20 Actifed - PO TID PRN NASAL CONGESTION Thiamine HCl 100 mg 10/25/17 22:00 11/13/17 21:08 Vitamin B1 - PO 100 mg HS TEO Administration Current Side Effect: No Lab tests ordered: Yes Lab tests reviewed: Yes Provider note:: Patient will complete this program on 11/15/17. 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 He is stable for discharge on 11/15/17 Total face to face time:: 35 Mental Status Exam - Mental Status Exam Alert and Oriented to: Time, Place, Person Cognitive Function: Fair Patient Appearance: Well Groomed Mood: Hopeful, Euthymic Affect: Appropriate Patient Behavior: Cooperative Speech Pattern: Clear Voice Loudness: Normal Thought Process: Intact, Goal Oriented Hallucinations: Denies Suicidal Ideation: Denies Homicidal Ideation: Denies Insight/Judgement: Fair Sleep: Well Appetite: Good Muscle strength/Tone: Normal Gait/Station: Normal Psychiatric Treatment Plan - Problem List (1) Alcohol dependence Current Visit: Yes (2) Cannabis dependence Current Visit: No (3) Nicotine dependence Current Visit: No Qualifiers: Nicotine product type: cigarettes Substance use status: in withdrawal Qualified Code(s): F17.213 - Nicotine dependence, cigarettes, with withdrawal (4) History of traumatic injury of head Current Visit: No (5) Seizure disorder Current Visit: No Comment: TANNA RAMIREZ Initial treatment plan: Patient will be discharged tomorrow and referred to [facility] for [facility] residential treatment
[2017-11-14] MEDS: PRENATAL VITAMINS W/ FOLIC ACID TABLET (FP) PO SCH (09:51)
[2017-11-14] MEDS: DIVALPROEX SODIUM 500 MG TABLET E.C. PO SCH ×2 (09:51→21:12)
[2017-11-14] MEDS: PHENYTOIN NA EXTENDED 100 MG CAPSULE (FP) PO SCH ×2 (09:52→21:12)
[2017-11-14] MEDS: NICOTINE 21 MG/24 HOURS TOPICAL PATCH TD SCH (09:52)
--- NOTE | 2017-11-14 09:57 | PN ---
Psychiatric Progress Note Vital Signs: Vital Signs Period Temp Pulse Resp BP Sys/Henderson Pulse Ox Last 24 Hr 98.3 F 87 16-18 107/72 Date of Session: 11/14/17 Chief Complaint:: Discharge Note HPI: Patient addressing Alcohol and Cannabid Dependence comorbid with Nicotine Dependence ROS: H/O Head injury, Seizure Disorder Current Medications: Active Medications Generic Name Dose Route Start Last Admin Trade Name Freq PRN Reason Stop Dose Admin Acetaminophen 650 mg 10/25/17 18:20 Tylenol - PO Q4H PRN FEVER Al Hydroxide/Mg Hydroxide 30 ml 10/25/17 18:20 Mylanta Oral Suspension - PO Q6H PRN DYSPEPSIA Divalproex Sodium 1,000 mg 10/25/17 22:00 11/14/17 09:51 Depakote - PO 1,000 mg BID TEO Administration Eucalyptus/Menthol/Phenol/Sorbitol 1 each 10/25/17 18:20 Cepastat Lozenge - MM Q4H PRN SORE THROAT Guaifenesin 10 ml 10/25/17 18:20 Robitussin Dm - PO Q6H PRN COUGH Hydroxyzine Pamoate 50 mg 10/25/17 18:20 Vistaril - PO Q4H PRN AGITATION Ibuprofen 400 mg 10/25/17 18:20 Motrin - PO Q6H PRN Pain Level 4-6 Loperamide HCl 4 mg 10/25/17 18:20 Imodium - PO Q6H PRN DIARRHEA Magnesium Citrate 300 ml 10/25/17 18:20 Citroma - PO Q48H PRN CONSTIPATION Magnesium Hydroxide 30 ml 10/25/17 18:20 Milk Of Magnesia - PO DAILY PRN CONSTIPATION Melatonin 5 mg 10/25/17 22:00 Melatonin PO HS PRN INSOMNIA Nicotine 21 mg 10/26/17 14:45 11/14/17 09:52 Nicoderm Patch - TD 21 mg DAILY TEO Administration Nicotine Polacrilex 2 mg 10/25/17 18:20 Nicorette Gum - BUC Q2H PRN NICOTINE REPLACEMENT RX Phenytoin Sodium 200 mg 11/11/17 22:00 11/14/17 09:52 Dilantin - PO 200 mg BID TEO Administration Multivit/Folic Acid/Iron 1 tab 10/26/17 10:00 11/14/17 09:51 Vitamins (Sjr) - PO 1 tab DAILY TEO Administration Pseudoephedrine/Triprolidine 1 combo 10/25/17 18:20 Actifed - PO TID PRN NASAL CONGESTION Thiamine HCl 100 mg 10/25/17 22:00 11/13/17 21:08 Vitamin B1 - PO 100 mg HS TEO Administration Current Side Effect: No Lab tests ordered: Yes Lab tests reviewed: Yes Provider note:: Patient will complete this program on 11/15/17. 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 Told villa that from his participation in this program, he has learned to make meetings and have a sponsor. He is stable for discharge on Total face to face time:: 35 Mental Status Exam - Mental Status Exam Alert and Oriented to: Time, Place, Person Cognitive Function: Fair Patient Appearance: Well Groomed Mood: Hopeful, Euthymic Affect: Appropriate Patient Behavior: Cooperative Speech Pattern: Clear Voice Loudness: Normal Thought Process: Intact, Goal Oriented Thought Disorder: Not Present Hallucinations: Denies Suicidal Ideation: Denies Homicidal Ideation: Denies Insight/Judgement: Fair Sleep: Well Appetite: Good Muscle strength/Tone: Normal Gait/Station: Normal Psychiatric Treatment Plan - Problem List (1) Alcohol dependence Current Visit: Yes (2) Cannabis dependence Current Visit: No (3) Nicotine dependence Current Visit: No Qualifiers: Nicotine product type: cigarettes Substance use status: in withdrawal Qualified Code(s): F17.213 - Nicotine dependence, cigarettes, with withdrawal (4) History of traumatic injury of head Current Visit: No (5) Seizure disorder Current Visit: No Comment: TANNA RAMIREZ Initial treatment plan: Patient will be discharged tomorrow and referrred to [facility] for senior living residential treatment
[2017-11-14] MEDS: THIAMINE HCL 100 MG TABLET (FP) PO SCH (21:13)
[2017-11-15 06:49] VITALS: BP 104/70; PULSE 86; TEMP 98.4
[2017-11-15] MEDS: PRENATAL VITAMINS W/ FOLIC ACID TABLET (FP) PO SCH (10:43)
[2017-11-15] MEDS: DIVALPROEX SODIUM 500 MG TABLET E.C. PO SCH (10:43)
[2017-11-15] MEDS: NICOTINE 21 MG/24 HOURS TOPICAL PATCH TD SCH (10:43)
[2017-11-15] MEDS: PHENYTOIN NA EXTENDED 100 MG CAPSULE (FP) PO SCH (10:43)
== END 2017-11-15 11:00 | disposition home or self-care (01) | DRG 772 ==
LOC: YASAS 16:01 → Y5N 16:02
PROVIDERS: ADMIT Psychiatry & Neurology Psychiatry; ATTEND Psychiatry & Neurology Psychiatry
PROC: HZ42ZZZ Group Counseling for Substance Abuse Treatment, Cognitive-Behavioral (ICD-10-PCS; principal; 2017-10-25)
DX: F10.20 Alcohol dependence, uncomplicated (principal); F12.20 Cannabis dependence, uncomplicated; F17.210 Nicotine dependence, cigarettes, uncomplicated; G40.909 Epilepsy, unspecified, not intractable, without status epilepticus; R26.89 Other abnormalities of gait and mobility; Z99.89 Dependence on other enabling machines and devices; Z87.828 Personal history of other (healed) physical injury and trauma
CPT/HCPCS: 36415; 80185